=== PATIENT | male | born 1955 | race American Indian/Alaskan Native ===

== ENCOUNTER 2016-09-11 21:59 | Emergency (ER) | payer MEDICAID ==
[2016-09-11 23:16] LABS: Hematocrit 36.8 % (35.5-45.6); Hemoglobin 11.4 gm/dl (11.8-15.2); Mean Corpuscular HGB Conc 31 % (32-34); Mean Corpuscular Volume 80 fl (84-94); Platelet Count 238 K/mm3 (140-440)
[2016-09-11 23:19] LABS: Alanine Aminotransferase 18 units/L (7-56); Albumin 4.4 g/dL (3.9-5); Albumin/Globulin Ratio 1.5 %; Alkaline Phosphatase 105 units/L (35-129); BUN/Creatinine Ratio 14.44; Bilirubin,Total < 0.2 mg/dL (0.1-1.2); Blood Urea Nitrogen 13 mg/dL (9-20); Carbon Dioxide 23 mmol/L (22-30); Glucose 91 mg/dL (75-100); Total Protein 7.3 g/dL (6.3-8.2)
[2016-09-11 23:20] LABS: Chloride 98.6 mmol/L (98-107); Potassium 4.3 mmol/L (3.6-5.0); Sodium 136 mmol/L (137-145)
[2016-09-11 23:21] LABS: Anion Gap 19 mmol/L
[2016-09-11 23:25] LABS: Mean Corpuscular Hemoglobin 25 pg (28-32)
[2016-09-12 00:17] LABS: Blastocytes % (Manual) 0 %; Hypochromasia 1+
[2016-09-12 00:18] LABS: Diff Status Complete; Large Platelets 1+; Macrocytosis 1+; Microcytosis 1+; Ovalocytes Few; Platelet Estimate Consistent w Auto; Tear Drop Cells Rare
[2016-09-12 00:57] LABS: Mucus,Urine FEW /HPF; WBC,Urine < 1.0 /HPF (0.0-6.0)
[2016-09-12 01:26] LABS: Bilirubin,Urine Negative (Negative); Blood,Urine Negative (Negative); Ketones,Urine Negative (Negative)
[2016-09-12 01:27] LABS: Leukocyte Esterase,Urine Negative (Negative); Nitrite,Urine Negative (Negative); Protein,Urine <15 mg/dL mg/dL (Negative); Urobilinogen,Urine 0.2 mg/dL (<2.0)
--- NOTE | 2016-09-12 07:46 | Emergency Department Report ---
ED General Adult [facility] - General Chief complaint: Extremity Injury, Lower Stated complaint: FOOT NUMBNESS Time Seen by Provider: 09/12/16 07:44 Source: patient Mode of arrival: Ambulatory Limitations: No Limitations - History of Present Illness Initial comments: Remarkably this patient is coming to the emergency department for care of apparently chronic problems. Even remarkable is the fact that he had an appointment to see his neurosurgeon for follow-up today at 2 PM. He is status post evacuation of a subdural hematoma (partial). He was treated at the [facility]. He has unknown pre-existing left foot drop. He presents to the emergency department today to see if we can fix his left foot drop which he has clearly had for years. I verified with the neurosurgeon that this is a chronic finding. The patient admits that he has had a swollen foot with weakness and numbness for years. He is status post the SDH evacuation about 5 weeks ago. At that point it was greater than 2 cm and was causing midline shift. Patient was discharged from [facility] and improved condition after his vivienne hole. The patient denies any history of DVT. He denies fever or chills. Oddly, he is hoping that we can take care of all of his foot problem in the emergency Department today. -: year(s) Quality: other Consistency: constant Improves with: none Worsens with: none Associated Symptoms: denies other symptoms Treatments Prior to Arrival: none - Related Data Home Medications Medication Instructions Recorded Confirmed Last Taken PHENobarbital 32.4 mg PO BID 06/08/13 12/22/15 12/22/15 amLODIPine [Norvasc] 5 mg PO DAILY 06/08/13 12/22/15 12/03/13 09:00 Ranitidine HCl [Zantac] 150 mg PO QDAY 12/03/13 12/22/15 Unknown Ascorbic Acid [Vitamin C with Nikole 0.5 tab PO TID 01/31/15 12/22/15 Unknown Hips] Ferrous Sulfate [Feosol 325 MG tab] 325 mg PO TID 04/18/15 12/22/15 Unknown Previous Rx's Medication Instructions Recorded Last Taken Type Clindamycin [Clindamycin CAP] 300 mg PO Q8H #20 cap 03/21/16 Unknown Rx Allergies Allergy/AdvReac Type Severity Reaction Status Date / Time No Known Allergies Allergy Verified 06/29/13 09:59 ED Review of Systems ROS: Stated complaint: FOOT NUMBNESS Other details as noted in HPI Constitutional: denies: chills, fever Eyes: denies: eye pain, eye discharge, vision change ENT: denies: ear pain, throat pain Respiratory: denies: cough, shortness of breath, wheezing Cardiovascular: denies: chest pain, palpitations Endocrine: no symptoms reported Gastrointestinal: denies: abdominal pain, nausea, diarrhea Genitourinary: denies: urgency, dysuria Musculoskeletal: denies: back pain, joint swelling, arthralgia Skin: denies: rash, lesions Neurological: denies: headache, weakness, paresthesias Psychiatric: denies: anxiety, depression Hematological/Lymphatic: denies: easy bleeding, easy bruising ED Past Medical Hx - Past Medical History Previous Medical History?: Yes Hx Hypertension: Yes Hx CVA: Yes Hx GERD: Yes Hx Arthritis: Yes Hx Seizures: Yes Hx COPD: Yes - Surgical History Past Surgical History?: Yes Additional Surgical History: PROSTATE SURGERY / BRAIN SURGERY - Social History Smoking Status: Current Every Day Smoker Substance Use Type: Non Opiate Pain, Prescribed - Medications Home Medications: Home Medications Medication Instructions Recorded Confirmed Last Taken Type PHENobarbital 32.4 mg PO BID 06/08/13 12/22/15 12/22/15 History amLODIPine [Norvasc] 5 mg PO DAILY 06/08/13 12/22/15 12/03/13 09:00 History Ranitidine HCl [Zantac] 150 mg PO QDAY 12/03/13 12/22/15 Unknown History Ascorbic Acid [Vitamin C with Nikole 0.5 tab PO TID 01/31/15 12/22/15 Unknown History Hips] Ferrous Sulfate [Feosol 325 MG tab] 325 mg PO TID 04/18/15 12/22/15 Unknown History Clindamycin [Clindamycin CAP] 300 mg PO Q8H #20 cap 03/21/16 Unknown Rx ED Physical Exam - General Limitations: No Limitations General appearance: alert, in no apparent distress - Head Head exam: Present: atraumatic, normocephalic - Eye Eye exam: Present: normal appearance, PERRL, EOMI. Absent: scleral icterus - ENT ENT exam: Present: mucous membranes moist - Neck Neck exam: Present: normal inspection - Respiratory Respiratory exam: Present: normal lung sounds bilaterally. Absent: respiratory distress - Cardiovascular Cardiovascular Exam: Present: regular rate, normal rhythm. Absent: systolic murmur, diastolic murmur, rubs, gallop - GI/Abdominal GI/Abdominal exam: Present: soft, normal bowel sounds. Absent: distended, tenderness, guarding, rebound, rigid - Rectal Rectal exam: Present: deferred - Extremities Exam Extremities exam: Present: pedal edema (mild left pedal edema 1+) - Back Exam Back exam: Present: normal inspection - Neurological Exam Neurological exam: Present: alert, oriented X3, CN II-XII intact, motor sensory deficit (the patient does not dorsi flex his left foot. He has pulses present. He has sensation present. He has a chronic foot drop which is nearly complete.) - Psychiatric Psychiatric exam: Present: normal affect, normal mood - Skin Skin exam: Present: warm, dry, intact, normal color. Absent: rash ED Course Vital Signs 09/11/16 09/12/16 09/12/16 22:09 02:26 06:42 Temperature 98.4 F 98.4 F Pulse Rate 94 H 84 Respiratory 20 20 18 Rate Blood Pressure 152/89 137/82 [Right] O2 Sat by Pulse 100 99 99 Oximetry 09/12/16 09/12/16 09/12/16 06:54 07:40 10:45 Temperature Pulse Rate 74 80 85 Respiratory 18 18 18 Rate Blood Pressure 134/73 136/94 149/87 [Right] O2 Sat by Pulse 99 99 99 Oximetry 09/12/16 13:00 Temperature Pulse Rate 99 H Respiratory 18 Rate Blood Pressure 146/74 [Right] O2 Sat by Pulse 99 Oximetry - Reevaluation(s) Reevaluation #1: The patient's CT showed no midline shift. There was a chronic subdural measuring 11 mm at its maximum girth on the right. I read the entire CT report to the patient's neurosurgeon is mid-level provider. She compared it to his discharge CT. It actually compared favorably. She told me the patient has a chronic foot drop and that his examination is unchanged. I told the patient that he should certainly keep his appointment with neurosurgery which she was noncompliant with today. I think he is a candidate for a foot brace. However I don't think an orthopedist is going to work with him until he is cleared by his neurosurgeon. I will leave that up to his neurosurgeon. He will be given a CD of his CT scan to bring to his neurosurgeon 's office. They will call him with a new appointment. 09/12/16 14:54 Reevaluation #2: On reexamination the patient was found resting comfortably. He has no evidence of any acute neurological process. His Doppler of his leg was negative. His foot drop is chronic. He is appropriate for discharge. 09/12/16 14:57 ED Medical Decision Making - Lab Data Result diagrams: 09/11/16 22:43 09/11/16 22:43 Laboratory Results - last 24 hr 09/11/16 09/11/16 09/12/16 22:43 22:43 Unknown WBC 5.0 RBC 4.60 Hgb 11.4 L Hct 36.8 MCV 80 L MCH 25 L MCHC 31 L RDW 33.0 H Plt Count 238 Add Manual Diff Complete Total Counted 100 Seg Neuts % (Manual) 58.0 Band Neutrophils % 0 Lymphocytes % (Manual) 28.0 Reactive Lymphs % (Man) 0 Monocytes % (Manual) 7.0 Eosinophils % (Manual) 6.0 H Basophils % (Manual) 1.0 Metamyelocytes % 0 Myelocytes % 0 Promyelocytes % 0 Blast Cells % 0 Nucleated RBC % Not Reportable Seg Neutrophils # Man 2.9 Band Neutrophils # 0.0 Lymphocytes # (Manual) 1.4 Abs React Lymphs (Man) 0.0 Monocytes # (Manual) 0.4 Eosinophils # (Manual) 0.3 Basophils # (Manual) 0.1 Metamyelocytes # 0.0 Myelocytes # 0.0 Promyelocytes # 0.0 Blast Cells # 0.0 WBC Morphology Not Reportable Hypersegmented Neuts Not Reportable Hyposegmented Neuts Not Reportable Hypogranular Neuts Not Reportable Smudge Cells Not Reportable Toxic Granulation Not Reportable Toxic Vacuolation Not Reportable Dohle Bodies Not Reportable Pelger-Huet Anomaly Not Reportable Gael Rods Not Reportable Platelet Estimate Consistent w auto Clumped Platelets Not Reportable Plt Clumps, EDTA Not Reportable Large Platelets 1+ Giant Platelets Not Reportable Platelet Satelliting Not Reportable Plt Morphology Comment Not Reportable RBC Morphology Not Reportable Dimorphic RBCs Not Reportable Polychromasia Not Reportable Hypochromasia 1+ Poikilocytosis Not Reportable Anisocytosis Not Reportable Microcytosis 1+ Macrocytosis 1+ Spherocytes Not Reportable Pappenheimer Bodies Not Reportable Sickle Cells Not Reportable Target Cells Not Reportable Tear Drop Cells Rare Ovalocytes Few Helmet Cells Not Reportable Jaeger-Kingston Bodies Not Reportable Thrall Rings Not Reportable Vivienne Cells Not Reportable Bite Cells Not Reportable Crenated Cell Not Reportable Elliptocytes Not Reportable Acanthocytes (Spur) Not Reportable Rouleaux Not Reportable Hemoglobin C Crystals Not Reportable Schistocytes Not Reportable Malaria parasites Not Reportable Fam Bodies Not Reportable Hem Pathologist Commnt No Sodium 136 L Potassium 4.3 Chloride 98.6 Carbon Dioxide 23 Anion Gap 19 BUN 13 Creatinine 0.9 Estimated GFR > 60 BUN/Creatinine Ratio 14.44 Glucose 91 Calcium 9.0 Total Bilirubin < 0.2 AST 21 ALT 18 Alkaline Phosphatase 105 Total Protein 7.3 Albumin 4.4 Albumin/Globulin Ratio 1.5 Urine Color Yellow Urine Turbidity Clear Urine pH 6.0 Ur Specific [place] 1.020 Urine Protein <15 mg/dl Urine Glucose (UA) Negative Urine Ketones Negative Urine Blood Negative Urine Nitrite Negative Ur Reducing Substances Not Reportable Urine Bilirubin Negative Urine Ictotest Not Reportable Urine Urobilinogen 0.2 Ur Leukocyte Esterase Negative Urine WBC (Auto) < 1.0 Urine RBC (Auto) 0.0 U Epithel Cells (Auto) < 1.0 Urine Mucus Few - Radiology Data Radiology results: report reviewed Critical care attestation.: If time is entered above; I have spent that time in minutes in the direct care of this critically ill patient, excluding procedure time. ED Disposition Clinical Impression: Chronic subdural hematoma, Foot drop, left Disposition: DISCHARGED TO HOME OR SELFCARE Is pt being admited?: No Does the pt Need Aspirin: No Condition: Stable Instructions: Foot Drop (ED), Subdural Hematoma (ED) Additional Instructions: Do not drink alcohol. Do not take aspirin. Must follow-up with your neurosurgeon. Perhaps when you are cleared they may refer you to physical therapy for a foot brace. However it is most essential that you follow-up with your neurosurgeon. They will call you with a new appointment. Return any acute change or problem. Referrals: PRIMARY CARE,MD [Primary Care Provider] - 3-5 Days usual, neurosurgeon [Other] - 2-3 Days Time of Disposition: 14:57
--- NOTE | 2016-09-12 09:21 | Cat Scan Report ---
Cranial CT without contrast. Findings: The posterior fossa is normal. The ventricles are normal in size and contour. There are no masses. There is an extra-axial collection on the right in the frontoparietal region most of which demonstrates CT numbers consistent with water density indicating chronicity. The maximum width of this collection measures 11 mm. There is minimal hyperdensity anteriorly some of which could be related to calcification. A very small hyperdense component cannot be excluded however. There is no shift of midline or other evidence of significant mass effect. Post craniotomy changes are seen in the right frontal bone. Impression: Mixed density right subdural hematoma most of which appears to be chronic. Minimal hyperdense fluid anteriorly suggests a small subcutaneous component. There is no significant mass effect. Postcraniotomy changes are noted.
[2016-09-12 13:19] VITALS: BP 146/74
--- NOTE | 2016-09-13 13:38 | Vascular Lab Report ---
Left Lower Extremity Venous Duplex Study: Reason for Exam: Left leg swelling. Comments on the Right: A limited duplex study was done of the proximal veins of the right lower extremity. All veins visualized are freely compressible without evidence of internal echogenicity. Flow is spontaneous and phasic throughout. No evidence of acute or chronic thrombus is seen in any of the vessels visualized. Comments on the Left: All veins visualized are freely compressible without evidence of internal echogenicity. Flow is spontaneous and phasic throughout. No evidence of acute or chronic thrombus is seen in any of the vessels visualized. Impression: No evidence of acute or chronic deep venous thrombosis in the left lower extremity.
== END 2016-09-12 15:17 | disposition home or self-care (01) ==
LOC: ED 21:59
DX: I62.03 Nontraumatic chronic subdural hemorrhage (principal); M21.372 Foot drop, left foot; I10 Essential (primary) hypertension; I63.9 Cerebral infarction, unspecified; K21.9 Gastro-esophageal reflux disease without esophagitis; M19.90 Unspecified osteoarthritis, unspecified site; R56.9 Unspecified convulsions; J44.9 Chronic obstructive pulmonary disease, unspecified; F17.200 Nicotine dependence, unspecified, uncomplicated
CPT/HCPCS: 36415; 70450; 80053; 81001; 85007; 85025

== ENCOUNTER 2019-03-23 21:38 | Emergency (ER) | payer MEDICAID ==
[2019-03-23] MEDS ORDERED: MORPHINE IV ONE (21:52)
--- NOTE | 2019-03-23 21:54 | Emergency Department Report ---
ED General Adult HPI - General Chief complaint: Abdominal Pain Stated complaint: HEMATURIA/GROIN/UMBILICAL PAIN Time Seen by Provider: 03/23/19 21:43 Source: patient, EMS (ems notes not available at time of chart dictation), RN notes reviewed, old records reviewed Mode of arrival: Stretcher Limitations: Other (patient has indwelling tracheostomy. Patient not able to speak. Patient writes down all responses to questions) - History of Present Illness Initial comments: This is a 60-year-old gentleman. His past medical history reportedly includes prostate cancer, hypertension, seizure, high cholesterol, COPD, head and neck cancer, tracheostomy Patient brought to the hospital by EMS for reported nontraumatic suprapubic pain, lower abdominal pain, and inability to urinate. The patient indicates the symptoms started today. He indicates they're constant. They reportedly did not have exacerbating or relieving factors. He indicates his pain does not radiate anywhere. The patient denies testicular pain. The patient also endorses a secondary complaint of nontraumatic bilateral lower extremity swelling. He thinks the swelling has been going on for a few days but he is not sure. He indicates no headache, neck pain, chest pain and upper abdominal pain, new, different shortness of breath. -: Gradual, hour(s), days(s) Location: abdomen, left, right, lower extremity Consistency: constant Improves with: none Worsens with: none - Related Data Home Medications Medication Instructions Recorded Confirmed Last Taken PHENobarbital 32.4 mg PO BID 06/08/13 07/10/17 12/22/15 amLODIPine [Norvasc] 5 mg PO DAILY 06/08/13 07/10/17 12/03/13 09:00 Ranitidine HCl [Zantac] 150 mg PO QDAY 12/03/13 07/10/17 Unknown Ascorbic Acid [Vitamin C with Nikole 0.5 tab PO TID 01/31/15 07/10/17 Unknown Hips] Ferrous Sulfate [Feosol 325 MG tab] 325 mg PO TID 04/18/15 07/10/17 Unknown Previous Rx's Medication Instructions Recorded Last Taken Type Acetaminophen/Codeine [Tylenol 1 tab PO Q6H PRN #12 tab 06/15/18 Unknown Rx /Codeine # 3 tab] levETIRAcetam [Keppra] 500 mg PO BID #10 tablet 06/15/18 Unknown Rx Nitrofurantoin [place]/M-Cryst 100 mg PO Q12HR #14 capsule 03/24/19 Unknown Rx [Macrobid CAP] Allergies Allergy/AdvReac Type Severity Reaction Status Date / Time No Known Allergies Allergy Verified 06/29/13 09:59 ED Review of Systems ROS: Stated complaint: HEMATURIA/GROIN/UMBILICAL PAIN Other details as noted in HPI Constitutional: denies: fever Eyes: denies: eye discharge ENT: denies: epistaxis Respiratory: denies: cough Cardiovascular: edema Gastrointestinal: abdominal pain Genitourinary: denies: testicular pain, testicular mass Musculoskeletal: denies: back pain Skin: denies: lesions Psychiatric: anxiety ED Past Medical Hx - Past Medical History Hx Hypertension: Yes Hx CVA: Yes Hx Congestive Heart Failure: No Hx Diabetes: No Hx GERD: Yes Hx Arthritis: Yes Hx Seizures: Yes Hx Asthma: No Hx COPD: Yes Hx HIV: No Additional medical history: anemia - Surgical History Additional Surgical History: PROSTATE SURGERY / BRAIN SURGERY, THROAT CA - Social History Smoking Status: Current Every Day Smoker Substance Use Type: Alcohol - Medications Home Medications: Home Medications Medication Instructions Recorded Confirmed Last Taken Type PHENobarbital 32.4 mg PO BID 06/08/13 07/10/17 12/22/15 History amLODIPine [Norvasc] 5 mg PO DAILY 06/08/13 07/10/17 12/03/13 09:00 History Ranitidine HCl [Zantac] 150 mg PO QDAY 12/03/13 07/10/17 Unknown History Ascorbic Acid [Vitamin C with Nikole 0.5 tab PO TID 01/31/15 07/10/17 Unknown History Hips] Ferrous Sulfate [Feosol 325 MG tab] 325 mg PO TID 04/18/15 07/10/17 Unknown History Acetaminophen/Codeine [Tylenol 1 tab PO Q6H PRN #12 tab 06/15/18 Unknown Rx /Codeine # 3 tab] levETIRAcetam [Keppra] 500 mg PO BID #10 tablet 06/15/18 Unknown Rx Nitrofurantoin [place]/M-Cryst 100 mg PO Q12HR #14 capsule 03/24/19 Unknown Rx [Macrobid CAP] ED Physical Exam - General Limitations: Other (the patient is not able to speak. The patient has a tracheostomy in the neck.) General appearance: alert, anxious, in distress - Head Head exam: Present: atraumatic, normocephalic - Eye Eye exam: Present: normal appearance - ENT ENT exam: Present: normal exam, mucous membranes moist, normal external ear exam, other (there is a tracheostomy on the neck, stoma is clean, no redness, pus or streaking) - Neck Neck exam: Present: normal inspection, full ROM. Absent: tenderness, meningismus - Respiratory Respiratory exam: Present: normal lung sounds bilaterally. Absent: respiratory distress, wheezes, rales, rhonchi, stridor, decreased breath sounds - Cardiovascular Cardiovascular Exam: Present: normal rhythm, tachycardia, normal heart sounds. Absent: systolic murmur, diastolic murmur, rubs, gallop - GI/Abdominal GI/Abdominal exam: Present: soft, tenderness, other (there is suprapubic tenderness.). Absent: distended, guarding, rebound, rigid, pulsatile mass - Rectal Rectal exam: Present: deferred - exam: Present: normal inspection, other (there is no testicular tenderness. There is normal testicular lie bilaterally. There is normal cremasteric reflex bilaterally.). 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 Compartments soft. No long bony tenderness. The pelvis is stable.). Absent: calf tenderness - Back Exam Back exam: Present: normal inspection, full ROM. Absent: tenderness, CVA tenderness (R), CVA tenderness (L), paraspinal tenderness, vertebral tenderness - Neurological Exam Neurological exam: Present: alert, other (5 out of 5 strength in 4 extremities. There is no obvious facial droop. The tongue is midline. The extraocular movements are intact bilaterally. Sensation is intact to light touch in the b ilateral upper, lower extremities.). Absent: motor sensory deficit - Psychiatric Psychiatric exam: Present: anxious - Skin Skin exam: Present: warm, dry, intact, normal color. Absent: rash ED Course Vital Signs 03/23/19 03/23/19 03/23/19 21:45 22:00 22:14 Temperature 98.9 F Pulse Rate 127 H Respiratory 13 33 H 26 H Rate Blood Pressure 191/110 O2 Sat by Pulse 98 98 Oximetry 03/23/19 03/23/19 03/23/19 22:16 22:30 22:45 Temperature Pulse Rate 111 H 109 H 106 H Respiratory 14 13 15 Rate Blood Pressure 145/81 145/81 191/110 O2 Sat by Pulse 97 97 Oximetry 03/23/19 03/23/19 03/23/19 23:24 23:30 23:46 Temperature Pulse Rate 111 H 104 H 108 H Respiratory 11 L 17 Rate Blood Pressure O2 Sat by Pulse 87 99 98 Oximetry 03/24/19 00:00 Temperature Pulse Rate 106 H Respiratory 12 Rate Blood Pressure O2 Sat by Pulse 97 Oximetry - Reevaluation(s) Reevaluation #1: 03/23/19 22:10 Differential diagnosis, including but not limited to: Urinary retention, urinary tract infection, BPH, urinary malignancy, dependent edema, DVT, renal insufficiency, hepatic insufficiency, venous insufficiency Assessment and plan: 63-year-old gentleman with 2 complaints Complaint #1, suprapubic pain with urinary retention. We will treat the patient's pain, as this is the most likely explanation for his tachycardia. Nursing team to place Carrasco catheter, to leg bag. In addition, we will request patient's medications be reconciled. CBC, CMP, urinalysis, urine culture ordered. Complaint #2, nontraumatic bilateral lower extremity swelling: Appears to be chronic dependent edema. Not hypoxic, no crackles or rales, appears to be pitting edema. Check screening laboratory studies. Reassess at the data points. Patient may benefit from low-dose diuretic, or compression stockings. Reevaluation #2: 03/24/19 00:12 Patient produced [address] scan of the abdomen and pelvis negative for acute disease. Specifically, the bladder does not appear to be distended on CT scan. X-ray of the chest unremarkable. Heart rate now 104 bpm. Patient appears improved. Indicates that he feels more comfortable at this time. Patient can follow up with an outpatient urology specialist and primary care doctor. Urinalysis reviewed and appreciated. We will cover empirically with Macrobid. Reevaluation #3: 03/24/19 00:15 Elevated blood pressure reviewed and appreciated, appears to be chronic, and not acutely symptomatic. Likely secondary to pain and possibly anxiety. He can follow up with his outpatient primary care doctor for his hypertension, elevated blood pressure. Please reference the [employer] clinical policy on hypertension which is not acutely decompensated or acutely symptomatic. ED Medical Decision Making - Lab Data Result diagrams: 03/23/19 21:56 03/23/19 21:56 Vital Signs 03/23/19 03/23/19 03/23/19 21:45 22:00 22:14 Temperature 98.9 F Pulse Rate 127 H Respiratory 13 33 H 26 H Rate Blood Pressure 191/110 O2 Sat by Pulse 98 98 Oximetry 03/23/19 22:16 Temperature Pulse Rate Respiratory 26 H Rate Blood Pressure O2 Sat by Pulse Oximetry Lab Results 03/23/19 03/23/19 03/23/19 Range/Units 21:56 21:56 21:56 WBC 5.9 (4.5-11.0) K/mm3 RBC 4.17 (3.65-5.03) M/mm3 Hgb 12.7 (11.8-15.2) gm/dl Hct 38.4 (35.5-45.6) % MCV 92 (84-94) fl MCH 31 (28-32) pg MCHC 33 (32-34) % RDW 17.8 H (13.2-15.2) % Plt Count 235 (140-440) K/mm3 PT 12.3 (12.2-14.9) Sec. INR 0.94 (0.87-1.13) Sodium 130 L (137-145) mmol/L Potassium 4.8 (3.6-5.0) mmol/L Chloride 94.1 L (98-107) mmol/L Carbon Dioxide 22 (22-30) mmol/L Anion Gap 19 mmol/L BUN 13 (9-20) mg/dL Creatinine 0.7 L (0.8-1.5) mg/dL Estimated GFR > 60 ml/min BUN/Creatinine Ratio 19 % Glucose 113 H (75-100) mg/dL Calcium 10.1 (8.4-10.2) mg/dL Total Bilirubin 0.20 (0.1-1.2) mg/dL AST 32 (5-40) units/L ALT 21 (7-56) units/L Alkaline Phosphatase 95 (35-129) units/L Total Protein 8.1 (6.3-8.2) g/dL Albumin 4.0 (3.9-5) g/dL Albumin/Globulin Ratio 1.0 % Urine Color (Yellow) Urine Turbidity (Clear) Urine pH (5.0-7.0) Ur Specific [place] (1.003-1.030) Urine Protein (Negative) mg/dL Urine Glucose (UA) (Negative) mg/dL Urine Ketones (Negative) mg/dL Urine Blood (Negative) Urine Nitrite (Negative) Urine Bilirubin (Negative) Urine Urobilinogen (<2.0) mg/dL Ur Leukocyte Esterase (Negative) Urine WBC (Auto) (0.0-6.0) /HPF Urine RBC (Auto) (0.0-6.0) /HPF 03/23/19 Range/Units 22:09 WBC (4.5-11.0) K/mm3 RBC (3.65-5.03) M/mm3 Hgb (11.8-15.2) gm/dl Hct (35.5-45.6) % MCV (84-94) fl MCH (28-32) pg MCHC (32-34) % RDW (13.2-15.2) % Plt Count (140-440) K/mm3 PT (12.2-14.9) Sec. INR (0.87-1.13) Sodium (137-145) mmol/L Potassium (3.6-5.0) mmol/L Chloride (98-107) mmol/L Carbon Dioxide (22-30) mmol/L Anion Gap mmol/L BUN (9-20) mg/dL Creatinine (0.8-1.5) mg/dL Estimated GFR ml/min BUN/Creatinine Ratio % Glucose (75-100) mg/dL Calcium (8.4-10.2) mg/dL Total Bilirubin (0.1-1.2) mg/dL AST (5-40) units/L ALT (7-56) units/L Alkaline Phosphatase (35-129) units/L Total Protein (6.3-8.2) g/dL Albumin (3.9-5) g/dL Albumin/Globulin Ratio % Urine Color Red (Yellow) Urine Turbidity Slightly-cloudy (Clear) Urine pH 6.0 (5.0-7.0) Ur Specific [place] 1.011 (1.003-1.030) Urine Protein 30 mg/dl (Negative) mg/dL Urine Glucose (UA) Neg (Negative) mg/dL Urine Ketones Neg (Negative) mg/dL Urine Blood Lg (Negative) Urine Nitrite Neg (Negative) Urine Bilirubin Neg (Negative) Urine Urobilinogen < 2.0 (<2.0) mg/dL Ur Leukocyte Esterase Tr (Negative) Urine WBC (Auto) > 182.0 H (0.0-6.0) /HPF Urine RBC (Auto) > 182.0 (0.0-6.0) /HPF - EKG Data -: EKG Interpreted by Me Rate: tachycardia - EKG Data 03/23/19 22:12 This is a sinus tachycardia, 132 beats per minute, normal axis, QTC 445 ms, left ventricular hypertrophy, there is no endorsement of chest pain, the EKG is abnormal, the EKG is not consistent with ST elevation myocardial infarction. The sinus tachycardia, the EKG is unchanged from prior EKG from May 2018. - Radiology Data Radiology results: pending, report reviewed, image reviewed interpreted by me: X-ray the chest negative for acute disease Print Report Referring Physician: MONIQUE CAMPOVERDE Patient Name: MICHELLE AWAN Date of : 1955 Sex: Male Report Date: 2019-03-23 Report Status: [place] [address] Cat Scan Report Signed Patient: MICHELLE AWAN MR#: [id number] : 1955 Acct:[id number] Age/Sex: 63 / M ADM Date: 03/23/19 Loc: ED Attending Dr: Ordering Physician: MONIQUE CAMPOVERDE MD Date of Service: 03/23/19 Procedure(s): CT abdomen pelvis wo con Accession Number(s): [id number] cc: MONIQUE CAMPOVERDE MD CT of the abdomen and pelvis without contrast INDICATION: Abdominal pain and urinary retention COMPARISON: None FINDINGS: Elevated left hemidiaphragm is seen with left basilar atelectasis. The liver, spleen, pancreas, adrenal glands and kidneys show no significant abnormalities. No definite gallbladder or biliary tree abnormality. No fluid or adenopathy in the upper abdomen. There is vascular calcification without aneurysm. CT of the pelvis shows no ureteral stones. No stone fragments seen in the bladder. Prostate is not enlarged with brachytherapy seeds in place. There is no bladder distention. No pelvic or inguinal adenopathy. No diverticulitis. Appendix is seen and is normal. IMPRESSION: Negative study. Automated exposure control was utilized to diminish radiation dose. Signer Name: Skip Rocha MD Signed: 03/23/2019 11:34 PM Workstation Name: [id number] Transcribed By: WILLIAM Dictated By: Skip Rocha MD Electronically Authenticated By: Skip Rocha MD Signed Date/Time: 03/23/19 9152 Critical care attestation.: If time is entered above; I have spent that time in minutes in the direct care of this critically ill patient, excluding procedure time. ED Disposition Clinical Impression: Lower extremity edema, Hematuria, Urinary hesitancy, Elevated blood pressure reading Disposition: - TO HOME OR SELFCARE Is pt being admited?: No Does the pt Need Aspirin: No Condition: Stable Additional Instructions: please call [phone], listen for the prompts and select option 1 to speak to our staff, Available Friday through Friday, 7 am to 5 pm PM to assist you. Continue current outpatient medications. Take the antibiotics as directed. Cultures were sent today, and results will be available in the next 3-5 days. Have a primary care doctor or urology specialist contact medical records department to obtain culture results. Follow-up with a urologist within the next 7-10 days. Not following up is recommended May resultant undiagnosed bladder, genitourinary cancer, tumor, malignancy. Follow-up with your primary care doctor within the next 7-10 days for elevated blood pressure, and lower extremity swelling. Patient was noted to have high blood pressure in the ER. Long-term complications of hypertension and elevated blood pressure include stroke, heart attack, disability, paralysis, loss of quality of life. Dr. Saldana is a local urology specialist. Make certain to bring the ultrasound requisition form with you. Please return to the ER right away with chest pain, shortness of breath, passing out, lightheadedness, shortness of breath, new, worsening or different symptoms. Referrals: ZOE SALDANA MD [Staff Physician] - 3-5 Days [facility] [Provider Group] - 3-5 Days
[2019-03-23 22:28] LABS: Hematocrit 38.4 % (35.5-45.6); Hemoglobin 12.7 gm/dl (11.8-15.2); Red Blood Count 4.17 M/mm3 (3.65-5.03)
[2019-03-23 22:29] LABS: Mean Corpuscular HGB Conc 33 % (32-34); Mean Corpuscular Volume 92 fl (84-94); Platelet Count 235 K/mm3 (140-440); Red Cell Distribution Width 17.8 % (13.2-15.2)
[2019-03-23 22:32] LABS: INR 0.94 (0.87-1.13)
[2019-03-23 22:38] LABS: BUN/Creatinine Ratio 19; Blood Urea Nitrogen 13 mg/dL (9-20); Calcium 10.1 mg/dL (8.4-10.2); Hemolysis Index 151
[2019-03-23 22:41] LABS: Alanine Aminotransferase 21 units/L (7-56)
[2019-03-23 22:56] LABS: Bilirubin,Urine NEG (Negative); Blood,Urine LG (Negative); Color,Urine Red (Yellow); Urobilinogen,Urine < 2.0 mg/dL (<2.0)
[2019-03-23 22:58] LABS: RBC,Urine > 182.0 /HPF (0.0-6.0); WBC,Urine > 182.0 /HPF (0.0-6.0)
--- NOTE | 2019-03-23 23:38 | Cat Scan Report ---
CT of the abdomen and pelvis without contrast INDICATION: Abdominal pain and urinary retention COMPARISON: None FINDINGS: Elevated left hemidiaphragm is seen with left basilar atelectasis. The liver, spleen, pancr eas, adrenal glands and kidneys show no significant abnormalities. No definite gallbladder or biliary tree abnormality. No fluid or adenopathy in the upper abdomen. There is vascular calcification witho ut aneurysm. CT of the pelvis shows no ureteral stones. No stone fragments seen in the bladder. Prostate is not en larged with brachytherapy seeds in place. There is no bladder distention. No pelvic or inguinal adeno ezio. No diverticulitis. Appendix is seen and is normal. IMPRESSION: Negative study. Automated exposure control was utilized to diminish radiation dose. Signer Name: Skip Rocha MD Signed: 03/23/2019 11:34 PM Workstation Name: [id number]
[2019-03-23] MEDS ORDERED: NACL 0.9% 1000 ML 500 ML IV ONE (23:47)
--- NOTE | 2019-03-24 00:05 | XRay Report ---
CHEST 1 VIEW INDICATION / CLINICAL INFORMATION: edema. COMPARISON: 07/09/2017 FINDINGS: SUPPORT DEVICES: Tracheostomy tube is in place. HEART / MEDIASTINUM: Moderately enlarged LUNGS / PLEURA: Clear except for minimal basilar atelectasis. No pneumothorax. ADDITIONAL FINDINGS: Multiple surgical clips are seen over the lower neck. IMPRESSION: 1 No acute abnormality Signer Name: Skip Rocha MD Signed: 03/24/2019 12:01 AM Workstation Name: [id number]
[2019-03-24] MEDS ORDERED: MAGNESIUM SULFATE 2GM/50ML 2 GM/50 ML BAG IV ONE (00:17)
[2019-03-24 00:20] VITALS: BP 144/82
== END 2019-03-24 10:16 | disposition home or self-care (01) ==
LOC: ED 21:38
DX: R60.0 Localized edema (principal); R31.9 Hematuria, unspecified; R39.11 Hesitancy of micturition; I10 Essential (primary) hypertension; K21.9 Gastro-esophageal reflux disease without esophagitis; M19.90 Unspecified osteoarthritis, unspecified site; J44.9 Chronic obstructive pulmonary disease, unspecified; D64.9 Anemia, unspecified; F17.200 Nicotine dependence, unspecified, uncomplicated; Z98.890 Other specified postprocedural states; Z95.818 Presence of other cardiac implants and grafts; Z86.73 Personal history of transient ischemic attack (TIA), and cerebral infarction without residual deficits; Z79.899 Other long term (current) drug therapy
CPT/HCPCS: 36415; 51702; 71045; 74176; 80053; 81001; 82550; 83735; 85027; 85610; 87086; 93005; 93010; 94760; 96365; 96375; 99285; J2270; J3475; J7030

== ENCOUNTER 2019-07-05 07:10 | Day surgery (SDC) | payer MEDICAID ==
[~2019-07-05 07:10] MED LIST: IOHEXOL 300 MG/ML 50ML IV ONE
[2019-07-05] MEDS ORDERED: ONDANSETRON 4 MG/2 ML INJ IV PRN (07:32)
--- NOTE | 2019-07-05 07:33 | Anesthesia Day of Surgery ---
Anesthesia Day of Surgery - Day of Surgery Patient Examined: Yes Patient H&P Reviewed: Yes Patient is NPO: Yes
--- NOTE | 2019-07-05 07:37 | Anesthesia Consultation ---
Anesthesia Consult and Med Hx Date of service: 07/05/19 - Pre-Operative Health Status ASA Pre-Surgery Classification: ASA3 Proposed Anesthetic Plan: General - Pulmonary Hx Smoking: Yes (STOPPED 2018 (SMOKED 1 PPD X OVER 50 YRS)) Hx Asthma: No SOB: Yes (SOB) COPD: Yes (DAILY INHALERS) Hx Pneumonia: Yes Hx Sleep Apnea: No (CIRA PRE SCREEN HIGH RISK.) - Cardiovascular System Hx Hypertension: Yes (X 25 YRS) - Central Nervous System Hx Neuromuscular Disorder: Yes (Chronic subdural hematoma) Hx Seizures: Yes (20 YRS AGO- ON DAILY MEDS) CVA: Yes (Aphasic and writes down answers) Hx Back Pain: Yes Hx Psychiatric Problems: No - Gastrointestinal Hx Gastroesophageal Reflux Disease: Yes - Endocrine Hx End Stage Renal Disease: No Hx Thyroid Disease: Yes Hx Hypothyroidism: Yes (ON DAILY MEDS) - Hematic Hx Anemia: Yes - Other Systems Hx Alcohol Use: Yes (HX ALCOHOLIC) Hx Cancer: Yes (NECK CA , [place]= RADICAL NECK) - Additional Comments Anesthesia Medical History Comments: PT HAS TRACH IN PLACE
[2019-07-05] MEDS ORDERED: PROPOFOL 200 MG/20 ML VIAL IV ONE (07:51)
[2019-07-05] MEDS ORDERED: fentaNYL 100 MCG/2 ML INJ ONE (07:52)
[2019-07-05] MEDS ORDERED: LIDOCAINE MPF (2%) 20 MG/1 ML VIAL 5 ML ONE (07:52)
[2019-07-05] MEDS ORDERED: LACTATED RINGERS 1,000 ML IV SCH (08:00)
[2019-07-05] MEDS ORDERED: ceFAZolin/STERILE WATER 2 GM/20 ML SYRINGE IV NR (08:05)
[2019-07-05] MEDS ORDERED: IOHEXOL 300 MG/ML 50ML IV ONE (09:00)
--- NOTE | 2019-07-05 09:30 | Fluoroscopy Report ---
9 fluoroscopic images submitted Indication: Intraoperative localization Impression: 9 images of the abdomen were submitted for documentation purposes with radiology involve ment. Bilateral retrograde pyelogram were performed using approximately 10 mL of Omnipaque 300. Plea se refer to the operative note for complete details. Fluoroscopic time: 15 seconds Signer Name: Nash Staton MD Signed: 07/05/2019 9:26 AM Workstation Name: [id number]
--- NOTE | 2019-07-05 09:34 | Post Operative Note ---
Date of procedure: 07/05/19 Pre-op diagnosis: cap stricture Post-op diagnosis: same Findings: stricture Procedure: severe stricture Anesthesia: GETA Surgeon: LISBETH REDMOND Estimated blood loss: minimal Pathology: none Condition: stable Disposition: PACU
--- NOTE | 2019-07-05 09:35 | Discharge Summary ---
Short Stay Discharge Plan Activity: other (no strainig ) Weight Bearing Status: Full Weight Bearing Diet: low fat, low cholesterol, low salt Special Instructions: other (inc fluids ) Durable Medical Equipment Needed Upon Discharge: other (schuster ) Follow up with: MARLENE GARIBAY MD [Primary Care Provider] - 7 Days
--- NOTE | 2019-07-05 09:48 | Operative Report ---
PREOPERATIVE DIAGNOSES: Severe urethral stricture, previous radiation. POSTOPERATIVE DIAGNOSES: Severe urethral stricture, previous radiation. PROCEDURES: Cystoscopy, retrograde direct vision internal urethrotomy. SURGEON: Dr. Hull. ANESTHESIA: General. FINDINGS: This is a gentleman with some mild hydronephrosis, difficulty voiding, now presents for treatment. He had a bad stricture. DESCRIPTION OF PROCEDURE: The patient was brought to the operating room and placed on the operating table. Following induction of anesthesia, placed in lithotomy position, prepped and draped in usual sterile fashion. Cystourethroscopy showed a stricture at the bulbomembranous junction. This measured approximately 1.5 cm. It was quite tight. A wire coiled in the bladder under fluoroscopic guidance and direct vision internal urethrotomy was carried out. The patient tolerated the procedure well and was wide open. Bladder neck was wide open, previously resected. At this point, retrograde showed some mild hydroureteronephrosis down to the bladder with some J hooking. There was no persistent filling defect. There was a little tortuosity in both ureters. The patient tolerated the procedure well. A Councill catheter 22 was easily placed over the wire once we opened up the channel, brought to recovery room in stable condition. JOB# [id number] SHIN/ARDEN
[2019-07-05] MEDS: fentaNYL 100 MCG/2 ML INJ IV PRN ×2 (10:00→10:10)
[2019-07-05 10:24] VITALS: BP 130/74
[2019-07-05] MEDS ORDERED: HYDROcodone/APAP 7.5-325MG-15ML ORAL LIQD PO ONE (10:29)
--- NOTE | 2019-07-05 13:37 | Post Anesthesia Evaluation ---
- Post Anesthesia Evaluation Patient Participated: Yes Airway Patent: Yes Stable Respiratory Function: Yes Nausea/Vomiting: No Temp > 96.8F: Yes Pain Manageable: Yes Adequeate Hydration: Yes Anesthesia Complications: No Block Receding Appropriately: Not Applicable Patient on Ventilator: No
== END 2019-07-05 07:11 | disposition home or self-care (01) ==
LOC: OR 07:10
PROVIDERS: ATTEND Urology
DX: N35.819 Other urethral stricture, male, unspecified site (principal); N13.30 Unspecified hydronephrosis; I10 Essential (primary) hypertension; F17.200 Nicotine dependence, unspecified, uncomplicated; J44.9 Chronic obstructive pulmonary disease, unspecified; G40.909 Epilepsy, unspecified, not intractable, without status epilepticus; E78.00 Pure hypercholesterolemia, unspecified; M19.90 Unspecified osteoarthritis, unspecified site; F41.9 Anxiety disorder, unspecified; Z79.899 Other long term (current) drug therapy; Z79.82 Long term (current) use of aspirin; Z85.89 Personal history of malignant neoplasm of other organs and systems; Z72.89 Other problems related to lifestyle; Z85.46 Personal history of malignant neoplasm of prostate; Z98.890 Other specified postprocedural states; Z86.2 Personal history of diseases of the blood and blood-forming organs and certain disorders involving the immune mechanism
CPT/HCPCS: 52276; 74420; C1769; J2704; J3010; J7120; Q9967

== ENCOUNTER 2019-07-23 18:32 | Inpatient (IN) | payer MEDICAID ==
[2019-07-23 19:39] LABS: Basophils % (Auto) 0.8 % (0.0-1.8); Eosinophils # (Auto) 0.1 K/mm3 (0.0-0.4); Eosinophils % (Auto) 3.7 % (0.0-4.3); Hematocrit 37.8 % (35.5-45.6); Hemoglobin 12.9 gm/dl (11.8-15.2); Lymphocytes # (Auto) 0.9 K/mm3 (1.2-5.4); Lymphocytes % (Auto) 25.7 % (13.4-35.0); Mean Corpuscular HGB Conc 34 % (32-34); Mean Corpuscular Volume 90 fl (84-94); Monocytes # (Auto) 0.2 K/mm3 (0.0-0.8); Monocytes % (Auto) 7.4 % (0.0-7.3); Platelet Count 211 K/mm3 (140-440); Red Blood Count 4.18 M/mm3 (3.65-5.03); Red Cell Distribution Width 14.8 % (13.2-15.2)
[2019-07-23 20:07] LABS: Alanine Aminotransferase 71 units/L (7-56); Albumin 4.1 g/dL (3.9-5); BUN/Creatinine Ratio 12; Blood Urea Nitrogen 12 mg/dL (9-20); Calcium 8.5 mg/dL (8.4-10.2); Hemolysis Index 9
[2019-07-23 20:09] LABS: Bilirubin,Direct < 0.2 mg/dL (0-0.2)
--- NOTE | 2019-07-23 20:22 | Emergency Department Report ---
ED General Adult HPI - General Chief complaint: Recheck/Abnormal Lab/Rx Stated complaint: LOW SODIUM Time Seen by Provider: 07/23/19 18:49 Source: EMS Mode of arrival: Stretcher Limitations: No Limitations - History of Present Illness Initial comments: 63-year-old male with a past medical history of laryngeal cancer status post tracheostomy, seizures, COPD, hyponatremia, and hypothyroidism presents to the hospital complains hyponatremia. Patient presents from [facility] with laboratory results from 06/24/2019 that shows sodium 131. Patient also had TSH of 50.65 and thyroxine free of 0.58. She has a note from the [facility] from July 01 call out clerk Mitul Long suggesting the hyponatremia may be related to his edema he needs to see a PCP and consider cardiac evaluation. Also stated patient should be taken synthroid 150 g daily as well as to decrease calcium carbonate (Tums). Patient has known chronic edema and states that it is increasing. Complains of bilateral leg pain. He denies shortness of breath. as per medical record previous hx of etoh abuse - Related Data Home Medications Medication Instructions Recorded Confirmed Last Taken PHENobarbitaL [PHENobarbital] 32.4 mg PO BID 06/08/13 07/23/19 07/23/19 Ferrous Sulfate [Feosol 325 MG tab] 325 mg PO TID 04/18/15 07/23/19 07/23/19 Acetaminophen [Mapap] 500 mg PO PRN PRN 06/29/19 07/23/19 Unknown Aspirin EC [Halfprin EC] 81 mg PO QDAY 06/29/19 07/23/19 Unknown Atorvastatin [Lipitor Tab] 80 mg PO QHS 06/29/19 07/23/19 07/22/19 Calcitriol [Rocaltrol] 0.25 mcg PO DAILY 06/29/19 07/23/19 07/23/19 Gabapentin [Neurontin] 300 mg PO TID 06/29/19 07/23/19 Unknown Levothyroxine Sodium [Tirosint] 150 mcg PO DAILY 06/29/19 07/23/19 07/23/19 Multivit-Min/FA/Lycopen/Lutein 1 each PO DAILY 06/29/19 07/23/19 07/23/19 [Centrum Silver Tablet] Pantoprazole [Protonix] 40 mg PO QDAY 06/29/19 07/23/19 07/23/19 Tamsulosin [Flomax] 0.4 mg PO QDAY 06/29/19 07/23/19 07/22/19 Tiotropium [place] [Spiriva] 2 puff IH DAILY 06/29/19 07/23/19 07/23/19 traMADoL [Ultram] 50 mg PO Q6HR PRN 06/29/19 07/23/19 Unknown Ascorbic Acid [Vitamin C] 500 mg PO BID 07/23/19 07/23/19 07/23/19 Baclofen 5 mg PO TID 07/23/19 07/23/19 07/23/19 Magnesium Oxide 400 400 mg PO BID 07/23/19 07/23/19 07/23/19 Thiamine HCl [Vitamin B-1] 100 mg PO BID 07/23/19 07/23/19 07/23/19 Allergies Allergy/AdvReac Type Severity Reaction Status Date / Time No Known Allergies Allergy Verified 06/29/13 09:59 ED Review of Systems ROS: Stated complaint: LOW SODIUM Other details as noted in HPI Comment: All other systems reviewed and negative ED Past Medical Hx - Past Medical History Hx Hypertension: Yes (X 25 YRS) Hx CVA: Yes Hx Congestive Heart Failure: No Hx Diabetes: No Hx GERD: Yes (DAILY MEDS) Hx of Cancer: Yes (pharyngeal cancer, prostate cancer) Hx Arthritis: Yes Hx Seizures: Yes (20 YRS AGO- ON DAILY MEDS) Hx Asthma: No Hx COPD: Yes (DAILY INHALERS) Hx HIV: No Additional medical history: anemia - Surgical History Past Surgical History?: No Additional Surgical History: PROSTATE SURGERY / BRAIN SURGERY, tracheostomy - Social History Smoking Status: Unknown if ever smoked Substance Use Type: None - Medications Home Medications: Home Medications Medication Instructions Recorded Confirmed Last Taken Type PHENobarbitaL [PHENobarbital] 32.4 mg PO BID 06/08/13 07/23/19 07/23/19 History Ferrous Sulfate [Feosol 325 MG tab] 325 mg PO TID 04/18/15 07/23/19 07/23/19 History Acetaminophen [Mapap] 500 mg PO PRN PRN 06/29/19 07/23/19 Unknown History Aspirin EC [Halfprin EC] 81 mg PO QDAY 06/29/19 07/23/19 Unknown History Atorvastatin [Lipitor Tab] 80 mg PO QHS 11/08/0507/23/19 07/22/19 History Calcitriol [Rocaltrol] 0.25 mcg PO DAILY 06/29/19 07/23/19 07/23/19 History Gabapentin [Neurontin] 300 mg PO TID 06/29/19 07/23/19 Unknown History Levothyroxine Sodium [Tirosint] 150 mcg PO DAILY 06/29/19 07/23/19 07/23/19 History Multivit-Min/FA/Lycopen/Lutein 1 each PO DAILY 06/29/19 07/23/19 07/23/19 History [Centrum Silver Tablet] Pantoprazole [Protonix] 40 mg PO QDAY 06/29/19 07/23/19 07/23/19 History Tamsulosin [Flomax] 0.4 mg PO QDAY 06/29/19 07/23/19 07/22/19 History Tiotropium [place] [Spiriva] 2 puff IH DAILY 06/29/19 07/23/19 07/23/19 History traMADoL [Ultram] 50 mg PO Q6HR PRN 06/29/19 07/23/19 Unknown History Ascorbic Acid [Vitamin C] 500 mg PO BID 07/23/19 07/23/19 07/23/19 History Baclofen 5 mg PO TID 07/23/19 07/23/19 07/23/19 History Magnesium Oxide 400 400 mg PO BID 07/23/19 07/23/19 07/23/19 History Thiamine HCl [Vitamin B-1] 100 mg PO BID 07/23/19 07/23/19 07/23/19 History ED Physical Exam - General Limitations: No Limitations - Other Other exam information: General: No acute distress Head: Atraumatic Eyes: normal appearance ENT: Moist mucous membranes, tracheostomy Neck: Normal appearance, no midline tenderness Chest: Clear to auscultation bilaterally CV: Regular rate and rhythm Abdomen: Soft, normal bowel sounds, nontender, nondistended, no rebound or guarding Back: Normal inspection Extremity: Normal inspection infection, b/l pitting lower extremity edema 2+ Neuro: Alert O x 3, no facial asymmetry, speech clear, no gross motor sensory deficit Psych: Appropriate behavior Skin: No rash ED Course Vital Signs 07/23/19 07/23/19 18:43 19:01 Pulse Rate 88 Respiratory 12 Rate Blood Pressure 154/89 O2 Sat by Pulse 98 100 Oximetry - Consultations Consultation #1: 07/23/19 20:45 case d/w [place] regarding acute worsening of chronic hyponatremia with chronic bilateral lower extremity edema. Recommends Lasix IV 20 mg the pt will be reassessed to determine further tx ED Medical Decision Making - Lab Data Result diagrams: 07/23/19 19:24 07/23/19 19:24 Lab Results 07/23/19 07/23/19 07/23/19 Range/Units 19:24 19:24 19:24 WBC 3.4 L (4.5-11.0) K/mm3 RBC 4.18 (3.65-5.03) M/mm3 Hgb 12.9 (11.8-15.2) gm/dl Hct 37.8 (35.5-45.6) % MCV 90 (84-94) fl MCH 31 (28-32) pg MCHC 34 (32-34) % RDW 14.8 (13.2-15.2) % Plt Count 211 (140-440) K/mm3 Lymph % (Auto) 25.7 (13.4-35.0) % Bell % (Auto) 7.4 H (0.0-7.3) % Eos % (Auto) 3.7 (0.0-4.3) % Baso % (Auto) 0.8 (0.0-1.8) % Lymph # 0.9 L (1.2-5.4) K/mm3 Bell # 0.2 (0.0-0.8) K/mm3 Eos # 0.1 (0.0-0.4) K/mm3 Baso # 0.0 (0.0-0.1) K/mm3 Seg Neutrophils % 62.4 (40.0-70.0) % Seg Neutrophils # 2.1 (1.8-7.7) K/mm3 Sodium 127 L (137-145) mmol/L Potassium 4.0 (3.6-5.0) mmol/L Chloride 89.0 L (98-107) mmol/L Carbon Dioxide 21 L (22-30) mmol/L Anion Gap 21 mmol/L BUN 12 (9-20) mg/dL Creatinine 1.0 (0.8-1.5) mg/dL Estimated GFR > 60 ml/min BUN/Creatinine Ratio 12 % Glucose 96 (75-100) mg/dL Osmolality Mosm/kg Calcium 8.5 (8.4-10.2) mg/dL Total Bilirubin < 0.20 (0.1-1.2) mg/dL Direct Bilirubin < 0.2 (0-0.2) mg/dL Indirect Bilirubin 0.0 mg/dL AST 73 H (5-40) units/L ALT 71 H (7-56) units/L Alkaline Phosphatase 145 H (35-129) units/L NT-Pro-B Natriuret Pep (0-900) pg/mL Total Protein 7.5 (6.3-8.2) g/dL Albumin 4.1 (3.9-5) g/dL Albumin/Globulin Ratio 1.2 % TSH > 100.000 H (0.270-4.200) mlU/mL Free T4 0.10 L (0.76-1.46) ng/dL Urine Sodium mmol/L Urine Chloride (110-250) mmolL 07/23/19 07/23/19 07/23/19 Range/Units 19:24 19:35 20:25 WBC (4.5-11.0) K/mm3 RBC (3.65-5.03) M/mm3 Hgb (11.8-15.2) gm/dl Hct (35.5-45.6) % MCV (84-94) fl MCH (28-32) pg MCHC (32-34) % RDW (13.2-15.2) % Plt Count (140-440) K/mm3 Lymph % (Auto) (13.4-35.0) % Bell % (Auto) (0.0-7.3) % Eos % (Auto) (0.0-4.3) % Baso % (Auto) (0.0-1.8) % Lymph # (1.2-5.4) K/mm3 Bell # (0.0-0.8) K/mm3 Eos # (0.0-0.4) K/mm3 Baso # (0.0-0.1) K/mm3 Seg Neutrophils % (40.0-70.0) % Seg Neutrophils # (1.8-7.7) K/mm3 Sodium (137-145) mmol/L Potassium (3.6-5.0) mmol/L Chloride (98-107) mmol/L Carbon Dioxide (22-30) mmol/L Anion Gap mmol/L BUN (9-20) mg/dL Creatinine (0.8-1.5) mg/dL Estimated GFR ml/min BUN/Creatinine Ratio % Glucose (75-100) mg/dL Osmolality 262 Mosm/kg Calcium (8.4-10.2) mg/dL Total Bilirubin (0.1-1.2) mg/dL Direct Bilirubin (0-0.2) mg/dL Indirect Bilirubin mg/dL AST (5-40) units/L ALT (7-56) units/L Alkaline Phosphatase (35-129) units/L NT-Pro-B Natriuret Pep 13.45 (0-900) pg/mL Total Protein (6.3-8.2) g/dL Albumin (3.9-5) g/dL Albumin/Globulin Ratio % TSH (0.270-4.200) mlU/mL Free T4 (0.76-1.46) ng/dL Urine Sodium 110 mmol/L Urine Chloride 106.0 L (110-250) mmolL - Medical Decision Making Patient was acute on chronic hyponatremia with lower extremity edema and uncontrolled hypothyroidism as per thyroid lab values. Case discussed with nephrology. Lasix provided. At this time patient has a normal BNP, clear breath sounds without shortness of breath, normal renal function, and no signs of low albumin/protein. At disposition serum osmolality, UA, urine lites, and urine osmolality pending. Hospitalist informed for admission. CXR ordered - Differential Diagnosis pseudohyponatremia, hypothyroidism, volume overload, hypoalbuminemia Critical Care Time: No Critical care attestation.: If time is entered above; I have spent that time in minutes in the direct care of this critically ill patient, excluding procedure time. ED Disposition Clinical Impression: Leg edema, Hyponatremia, Hypothyroidism, Tracheostomy dependent, COPD (chronic obstructive pulmonary disease) Disposition: OP ADMIT IP TO THIS HOSP Is pt being admited?: Yes Condition: Stable Time of Disposition: 20:53
[2019-07-23] MEDS ORDERED: FUROSEMIDE 20 MG/2 ML INJ IV ONE (20:34)
[2019-07-23] MEDS ORDERED: ONDANSETRON 4 MG/2 ML INJ IV PRN (20:50)
[2019-07-23 20:53] LABS: Bilirubin,Urine NEG (Negative); Blood,Urine LG (Negative); Color,Urine Straw (Yellow); Protein,Urine <15 mg/dL mg/dL (Negative); RBC,Urine > 182.0 /HPF (0.0-6.0); Urobilinogen,Urine < 2.0 mg/dL (<2.0)
--- NOTE | 2019-07-23 21:23 | XRay Report ---
CHEST 1 VIEW INDICATION: leg edema. COMPARISON: 03/23/2019 FINDINGS: Support devices: Stable satisfactory device positioning. Heart: Within normal limits. Lungs/Pleura: Stable mild elevation of the left hemidiaphragm. Otherwise clear lungs. Additional findings: None. IMPRESSION: 1. No acute findings. Signer Name: Nash Staton MD Signed: 07/23/2019 9:19 PM Workstation Name: [id number]
[2019-07-23] MEDS ORDERED: MAGNESIUM OXIDE PO SCH (22:00)
[2019-07-23] MEDS ORDERED: THIAMINE HCL 100 MG PO SCH (22:00)
[2019-07-23] MEDS ORDERED: NON-FORMULARY EACH (Atorvastatin [Lipitor] 80 MG) PO SCH (22:00)
[2019-07-23] MEDS ORDERED: NON-FORMULARY EACH (Ascorbic Acid [Vitamin C] 500 MG) PO SCH (22:00)
[2019-07-23] MEDS ORDERED: ALBUTEROL 2.5 MG/3 ML NEBU IH PRN (22:08)
--- NOTE | 2019-07-23 22:15 | History and Physical Report ---
<IFRAH MUNROE - Last Filed: 07/23/19 22:50> History of Present Illness Date of examination: 07/23/19 Date of admission: 07/23/2019 Chief complaint: abnormal labs ( hyponatremia) History of present illness: 63-year-old -[place] male who is a resident of [facility] with history of laryngeal cancer status post trach, seizure, COPD, hyponatremia, hypothyroidism, EtOH abuse, hypertension, CVA, GERD, arthritis, anemia, HLD and chronic pain who presents to [facility] ED with complaints of hyponatremia. She was b rought in from [facility] for follow-up on abnormal sodium level of 131 which was done at outpatient facility on 06/24/19. Of note pt saw Dr. Mitul Long (surgical device sales representative) on 07/01/19, who suggested that hyponatremia may be related to BLE edema, and advised pt to follow up with PCP and consider cardiac evaluation. Pt's PCP is Dr. Vinh Lennon. Of note pt was found to have TSH of 50.65 and thyroxine free of 0.58. At the time pt was on Synthroid 137mcg. Synthroid was increased to 150mcg and pt was advised to follow up on TSH labs in 6 weeks. At the time of my examination pt is sitting up in stretcher. He is able to communicate by mouthing words and writing. He complains of leg discomfort, and has no further complaints. Past History Past Medical History: anemia, arthritis, cancer (laryngeal), COPD, GERD, hypertension, hyperlipidemia, hypothyroidism, seizures, stroke, other (hyponatremia, EtOH abuse, chronic pain) Past Surgical History: Other (s/p tracheostomy, prostate surgery, brain surgery) Social history: full code, other (resident of [facility]) Family history: no significant family history Medications and Allergies Allergies Allergy/AdvReac Type Severity Reaction Status Date / Time No Known Allergies Allergy Verified 06/29/13 09:59 Home Medications Medication Instructions Recorded Confirmed Last Taken Type PHENobarbitaL [PHENobarbital] 32.4 mg PO BID 06/08/13 07/23/19 07/23/19 History Ferrous Sulfate [Feosol 325 MG tab] 325 mg PO TID 04/18/15 07/23/19 07/23/19 History Acetaminophen [Mapap] 500 mg PO PRN PRN 06/29/19 07/23/19 Unknown History Aspirin EC [Halfprin EC] 81 mg PO QDAY 06/29/19 07/23/19 Unknown History Atorvastatin [Lipitor] 80 mg PO QHS 06/29/19 07/23/19 07/22/19 History Calcitriol [Rocaltrol] 0.25 mcg PO DAILY 06/29/19 07/23/19 07/23/19 History Gabapentin [Neurontin 250 mg/5 ml] 300 mg PO TID 06/29/19 07/23/19 Unknown History Multivit-Min/FA/Lycopen/Lutein 1 each PO DAILY 06/29/19 07/23/19 07/23/19 History [Centrum Silver Tablet] Pantoprazole [Protonix TAB] 40 mg PO QDAY 06/29/19 07/23/19 07/23/19 History Tamsulosin [Flomax] 0.4 mg PO QDAY 06/29/19 07/23/19 07/22/19 History Tiotropium [place] [Spiriva] 2 puff IH DAILY 06/29/19 07/23/19 07/23/19 History traMADoL [Ultram 50 MG tab] 50 mg PO Q6HR PRN 06/29/19 07/23/19 Unknown History Ascorbic Acid [Vitamin C] 500 mg PO BID 07/23/19 07/23/19 07/23/19 History Baclofen 5 mg PO TID 07/23/19 07/23/19 07/23/19 History Magnesium Oxide 400 400 mg PO BID 07/23/19 07/23/19 07/23/19 History Thiamine HCl [Vitamin B-1] 100 mg PO BID 07/23/19 07/23/19 07/23/19 History ALBUTEROL NEB's [Proventil 0.083% 2.5 mg IH Q4HRT PRN nebu 07/28/19 Unknown Rx NEBS] Levothyroxine Sodium [Tirosint] 200 mcg PO DAILY #30 cap 07/28/19 Unknown Rx Prednisone [predniSONE 10 mg 10 mg PO .TAPER #1 tab.ds.pk 07/28/19 Unknown Rx (6-Day Pack, 21 Tabs)] amLODIPine 5 mg PO QDAY tablet 07/28/19 Unknown Rx Active Meds: Active Medications Acetaminophen (Tylenol) 650 mg PO Q4H PRN PRN Reason: Pain MILD(1-3)/Fever >100.5/HERNANDEZ Albuterol (Proventil) 2.5 mg IH Q4HRT PRN PRN Reason: Shortness Of Breath Ascorbic Acid (Vitamin C) 500 mg PO BID [facility] Aspirin (Halfprin Ec) 81 mg PO QDAY [facility] Atorvastatin Calcium (Lipitor) 80 mg PO QHS [facility] Baclofen (Lioresal) 5 mg PO TID [facility] Budesonide (Pulmicort) 0.5 mg IH Q12HRT [facility] Calcitriol (Rocaltrol) 0.25 mcg PO DAILY [facility] Ferrous Sulfate (Feosol) 325 mg PO TID [facility] Gabapentin (Gabapentin) 300 mg PO TID [facility] Heparin Sodium (Porcine) (Heparin) 5,000 unit SUB-Q Q12HR [facility] Ceftriaxone Sodium (Rocephin/Ns 1 Gm/50 Ml) 1 gm in 50 mls @ 100 mls/hr IV Q24H [facility]; Protocol Levothyroxine Sodium (Synthroid) 150 mcg PO DAILY@0600 [facility] Magnesium Oxide (Mag-Ox) 400 mg PO BID [facility] Multivitamins/Minerals (Theragran-M Tab) 1 each PO QDAY [facility] Ondansetron HCl (Zofran) 4 mg IV Q8H PRN PRN Reason: Nausea And Vomiting Pantoprazole Sodium (Protonix) 40 mg PO QDAY [facility] Phenobarbital (Phenobarbital) 32.4 mg PO BID [facility] Sodium Chloride (Sodium Chloride Flush Syringe 10 Ml) 10 ml IV BID [facility] Sodium Chloride (Sodium Chloride Flush Syringe 10 Ml) 10 ml IV PRN PRN PRN Reason: LINE FLUSH Tamsulosin HCl (Flomax) 0.4 mg PO QDAY [facility] Thiamine HCl (Vitamin B-1) 100 mg PO BID [facility] Review of Systems All systems: negative Constitutional: chronic pain Exam - Physical Exam Narrative exam: Physical exam General appearance: Present: No acute distress, alert and oriented 3, mouth words, chronically ill-appearing, older adult male - EENT Eyes: Present: PERRL, EOM intact ENT: hearing intact, missing teeth - Neck Neck: Present: supple, normal ROM, tracheostomy - Respiratory Respiratory effort: Non-labored Respiratory: Clear throughout - Cardiovascular Heart rate: 80 (bpm) Rhythm: Sinus rhythm Heart Sounds: Present: S1 & S2. Absent: rub, click - Extremities Extremities: no ischemia, pulses intact, 2+ bilateral lower extremity pitting edema from knees to feet - Peripheral Assessment Peripheral Pulses: within normal limits - Abdominal General gastrointestinal: soft, non-tender, normal bowel sounds - Integumentary Integumentary: Present: warm, dry - Musculoskeletal Musculoskeletal: Able to move all extremities -Neurological Neurological: CN II-XII intact - Psychiatric Psychiatric:cooperative - Constitutional Vitals: Temp Pulse Resp BP Pulse Ox 98.1 F 80 12 154/88 100 07/23/19 20:50 07/23/19 21:00 07/23/19 21:00 07/23/19 21:31 07/23/19 21:31 Results - Labs CBC & Chem 7: 07/23/19 19:24 07/23/19 19:24 Labs: Laboratory Last Values WBC 3.4 K/mm3 (4.5-11.0) L 07/23/19 19:24 RBC 4.18 M/mm3 (3.65-5.03) 07/23/19 19:24 Hgb 12.9 gm/dl (11.8-15.2) 07/23/19 19:24 Hct 37.8 % (35.5-45.6) 07/23/19 19:24 MCV 90 fl (84-94) 07/23/19 19:24 MCH 31 pg (28-32) 07/23/19 19:24 MCHC 34 % (32-34) 07/23/19 19:24 RDW 14.8 % (13.2-15.2) 07/23/19 19:24 Plt Count 211 K/mm3 (140-440) 07/23/19 19:24 Lymph % (Auto) 25.7 % (13.4-35.0) 07/23/19 19:24 [place] % (Auto) 7.4 % (0.0-7.3) H 07/23/19 19:24 Eos % (Auto) 3.7 % (0.0-4.3) 07/23/19 19:24 Baso % (Auto) 0.8 % (0.0-1.8) 07/23/19 19:24 Lymph # 0.9 K/mm3 (1.2-5.4) L 07/23/19 19:24 [place] # 0.2 K/mm3 (0.0-0.8) 07/23/19 19:24 Eos # 0.1 K/mm3 (0.0-0.4) 07/23/19 19:24 Baso # 0.0 K/mm3 (0.0-0.1) 07/23/19 19:24 Seg Neutrophils % 62.4 % (40.0-70.0) 07/23/19 19:24 Seg Neutrophils # 2.1 K/mm3 (1.8-7.7) 07/23/19 19:24 Sodium 127 mmol/L (137-145) L 07/23/19 19:24 Potassium 4.0 mmol/L (3.6-5.0) 07/23/19 19:24 Chloride 89.0 mmol/L (98-107) L 07/23/19 19:24 Carbon Dioxide 21 mmol/L (22-30) L 07/23/19 19:24 Anion Gap 21 mmol/L 07/23/19 19:24 BUN 12 mg/dL (9-20) 07/23/19 19:24 Creatinine 1.0 mg/dL (0.8-1.5) 07/23/19 19:24 Estimated GFR > 60 ml/min 07/23/19 19:24 BUN/Creatinine Ratio 12 % 07/23/19 19:24 Glucose 96 mg/dL (75-100) 07/23/19 19:24 Osmolality 262 Mosm/kg 07/23/19 19:35 Calcium 8.5 mg/dL (8.4-10.2) 07/23/19 19:24 Total Bilirubin < 0.20 mg/dL (0.1-1.2) 07/23/19 19:24 Direct Bilirubin < 0.2 mg/dL (0-0.2) 07/23/19 19:24 Indirect Bilirubin 0.0 mg/dL 07/23/19 19:24 AST 73 units/L (5-40) H 07/23/19 19:24 ALT 71 units/L (7-56) H 07/23/19 19:24 Alkaline Phosphatase 145 units/L (35-129) H 07/23/19 19:24 NT-Pro-B Natriuret Pep 13.45 pg/mL (0-900) 07/23/19 19:24 Total Protein 7.5 g/dL (6.3-8.2) 07/23/19 19:24 Albumin 4.1 g/dL (3.9-5) 07/23/19 19:24 Albumin/Globulin Ratio 1.2 % 07/23/19 19:24 TSH > 100.000 mlU/mL (0.270-4.200) H 07/23/19 19:24 Free T4 0.10 ng/dL (0.76-1.46) L 07/23/19 19:24 Urine Color Straw (Yellow) 07/23/19 20:25 Urine Turbidity Slightly-cloudy (Clear) 07/23/19 20:25 Urine pH 7.0 (5.0-7.0) 07/23/19 20:25 Ur Specific [place] 1.010 (1.003-1.030) 07/23/19 20:25 Urine Protein <15 mg/dl mg/dL (Negative) 07/23/19 20:25 Urine Glucose (UA) Neg mg/dL (Negative) 07/23/19 20:25 Urine Ketones Neg mg/dL (Negative) 07/23/19 20:25 Urine Blood Lg (Negative) 07/23/19 20:25 Urine Nitrite Neg (Negative) 07/23/19 20:25 Urine Bilirubin Neg (Negative) 07/23/19 20:25 Urine Urobilinogen < 2.0 mg/dL (<2.0) 07/23/19 20:25 Ur Leukocyte Esterase Neg (Negative) 07/23/19 20:25 Urine WBC (Auto) 1.0 /HPF (0.0-6.0) 07/23/19 20:25 Urine RBC (Auto) > 182.0 /HPF (0.0-6.0) 07/23/19 20:25 U Epithel Cells (Auto) < 1.0 /HPF (0-13.0) 07/23/19 20:25 Urine Sodium 110 mmol/L 07/23/19 20:25 Urine Chloride 106.0 mmolL (110-250) L 07/23/19 20:25 - Imaging and Cardiology Imaging and Cardiology: CXR: FINDINGS: Support devices: Stable satisfactory device positioning. Heart: Within normal limits. Lungs/Pleura: Stable mild elevation of the left hemidiaphragm. Otherwise clear lungs. Additional findings: None. IMPRESSION: 1. No acute findings. Assessment and Plan Assessment and plan: 63-year-old -[place] male who is a resident of [facility] with history of laryngeal cancer status post trach, seizure, COPD, hyponatremia, hypothyroidism, EtOH abuse, hypertension, CVA, GERD, arthritis, anemia, HLD and chronic pain who presents to [facility] ED with complaints of hyponatremia. Hyponatremia -Na on admission 127 ( trending down from outpatient labs Na 131 on 06/24/19) -?? may be related to BLE edema -Hx of chronic hyponatremia -Received IV 20mg in ED -Nephrology consulted -Continue to monitor Urinary tract infection -UA positive for UTI -urine wbc>182 -Urine culture pending -on IV Abx Hypothyroidism -TSH> 100 -On Synthroid 150mcg (recently increased from 137mcg on 07/01/19 per outside medical records) -T3, T4 labs pending -Follow up on pending thyroid labs to see if Synthroid dose adjustment is needed -Will require outpatient follow up on TSH Bilateral lower extremity edema -may be due to undiagnosed cardiac issues -Received IV Lasix -Echo pending -Cardiology Consulted COPD -Albuterol prn -Scheduled Pulmicort HTN -Monitor BP -Start Norvasc 5mg daily HLD -Continue statin GERD -Continue Protonix Hx Seizure -Continue [place] and Phenobarbital Hx Laryngeal Cancer -S/P Trach -Perform Trach care prn DVT PPX -On Heparin Advance Directives: No VTE prophylaxis?: Chemical Plan of care discussed with patient/family: Yes <TG VILLARREAL - Last Filed: 08/03/19 23:28> History of Present Illness Date of admission: 07/23/19 20:50 Medications and Allergies Active Meds: Active Medications Acetaminophen (Tylenol) 650 mg PO Q4H PRN PRN Reason: Pain MILD(1-3)/Fever >100.5/HERNANDEZ Last Admin: 07/24/19 00:25 Dose: 325 mg Documented by: Albuterol (Proventil) 2.5 mg IH Q4HRT PRN PRN Reason: Shortness Of Breath Amlodipine Besylate (Amlodipine) 5 mg PO QDAY [facility] Ascorbic Acid (Vitamin C) 500 mg PO BID [facility] Last Admin: 07/24/19 00:47 Dose: Not Given Documented by: Aspirin (Halfprin Ec) 81 mg PO QDAY [facility] Atorvastatin Calcium (Lipitor) 80 mg PO QHS [facility] Last Admin: 07/24/19 00:24 Dose: 80 mg Documented by: Baclofen (Lioresal) 5 mg PO TID [facility] Budesonide (Pulmicort) 0.5 mg IH Q12HRT [facility] Calcitriol (Rocaltrol) 0.25 mcg PO DAILY [facility] Ferrous Sulfate (Feosol) 325 mg PO TID [facility] Gabapentin (Gabapentin) 300 mg PO TID [facility] Heparin Sodium (Porcine) (Heparin) 5,000 unit SUB-Q Q12HR [facility] Last Admin: 07/24/19 00:28 Dose: 5,000 unit Documented by: Ceftriaxone Sodium (Rocephin/Ns 1 Gm/50 Ml) 1 gm in 50 mls @ 100 mls/hr IV Q24H [facility]; Protocol Last Admin: 07/24/19 00:28 Dose: 100 mls/hr Documented by: Levothyroxine Sodium (Synthroid) 150 mcg PO DAILY@0600 [facility] Magnesium Oxide (Mag-Ox) 400 mg PO BID [facility] Last Admin: 07/24/19 00:25 Dose: 400 mg Documented by: Multivitamins/Minerals (Theragran-M Tab) 1 each PO QDAY [facility] Ondansetron HCl (Zofran) 4 mg IV Q8H PRN PRN Reason: Nausea And Vomiting Pantoprazole Sodium (Protonix) 40 mg PO QDAY [facility] Phenobarbital (Phenobarbital) 32.4 mg PO BID [facility] Last Admin: 07/24/19 00:25 Dose: 32.4 mg Documented by: Sodium Chloride (Sodium Chloride Flush Syringe 10 Ml) 10 ml IV BID [facility] Last Admin: 07/24/19 00:27 Dose: 10 ml Documented by: Sodium Chloride (Sodium Chloride Flush Syringe 10 Ml) 10 ml IV PRN PRN PRN Reason: LINE FLUSH Tamsulosin HCl (Flomax) 0.4 mg PO QDAY [facility] Thiamine HCl (Vitamin B-1) 100 mg PO BID [facility] Last Admin: 07/24/19 00:26 Dose: 100 mg Documented by: Exam - Constitutional Vitals: Temp Pulse Resp BP Pulse Ox 98.7 F 86 20 163/96 97 07/23/19 23:57 07/24/19 00:27 07/23/19 23:57 07/24/19 00:27 07/23/19 23:57 Results - Labs CBC & Chem 7: 07/24/19 05:17 07/28/19 06:29 Labs: Laboratory Last Values WBC 3.4 K/mm3 (4.5-11.0) L 07/23/19 19:24 RBC 4.18 M/mm3 (3.65-5.03) 07/23/19 19:24 Hgb 12.9 gm/dl (11.8-15.2) 07/23/19 19:24 Hct 37.8 % (35.5-45.6) 07/23/19 19:24 MCV 90 fl (84-94) 07/23/19 19:24 MCH 31 pg (28-32) 07/23/19 19:24 MCHC 34 % (32-34) 07/23/19 19:24 RDW 14.8 % (13.2-15.2) 07/23/19 19:24 Plt Count 211 K/mm3 (140-440) 07/23/19 19:24 Lymph % (Auto) 25.7 % (13.4-35.0) 07/23/19 19:24 [place] % (Auto) 7.4 % (0.0-7.3) H 07/23/19 19:24 Eos % (Auto) 3.7 % (0.0-4.3) 07/23/19 19:24 Baso % (Auto) 0.8 % (0.0-1.8) 07/23/19 19:24 Lymph # 0.9 K/mm3 (1.2-5.4) L 07/23/19 19:24 [place] # 0.2 K/mm3 (0.0-0.8) 07/23/19 19:24 Eos # 0.1 K/mm3 (0.0-0.4) 07/23/19 19:24 Baso # 0.0 K/mm3 (0.0-0.1) 07/23/19 19:24 Seg Neutrophils % 62.4 % (40.0-70.0) 07/23/19 19:24 Seg Neutrophils # 2.1 K/mm3 (1.8-7.7) 07/23/19 19:24 Sodium 127 mmol/L (137-145) L 07/23/19 19:24 Potassium 4.0 mmol/L (3.6-5.0) 07/23/19 19:24 Chloride 89.0 mmol/L (98-107) L 07/23/19 19:24 Carbon Dioxide 21 mmol/L (22-30) L 07/23/19 19:24 Anion Gap 21 mmol/L 07/23/19 19:24 BUN 12 mg/dL (9-20) 07/23/19 19:24 Creatinine 1.0 mg/dL (0.8-1.5) 07/23/19 19:24 Estimated GFR > 60 ml/min 07/23/19 19:24 BUN/Creatinine Ratio 12 % 07/23/19 19:24 Glucose 96 mg/dL (75-100) 07/23/19 19:24 Osmolality 262 Mosm/kg 07/23/19 19:35 Calcium 8.5 mg/dL (8.4-10.2) 07/23/19 19:24 Total Bilirubin < 0.20 mg/dL (0.1-1.2) 07/23/19 19:24 Direct Bilirubin < 0.2 mg/dL (0-0.2) 07/23/19 19:24 Indirect Bilirubin 0.0 mg/dL 07/23/19 19:24 AST 73 units/L (5-40) H 07/23/19 19:24 ALT 71 units/L (7-56) H 07/23/19 19:24 Alkaline Phosphatase 145 units/L (35-129) H 07/23/19 19:24 NT-Pro-B Natriuret Pep 13.45 pg/mL (0-900) 07/23/19 19:24 Total Protein 7.5 g/dL (6.3-8.2) 07/23/19 19:24 Albumin 4.1 g/dL (3.9-5) 07/23/19 19:24 Albumin/Globulin Ratio 1.2 % 07/23/19 19:24 TSH > 100.000 mlU/mL (0.270-4.200) H 07/23/19 19:24 Free T4 0.10 ng/dL (0.76-1.46) L 07/23/19 21:34 Thyroxine (T4) 0.4 ug/dL (4.0-12.0) L 07/23/19 21:34 Urine Color Straw (Yellow) 07/23/19 20:25 Urine Turbidity Slightly-cloudy (Clear) 07/23/19 20:25 Urine pH 7.0 (5.0-7.0) 07/23/19 20:25 Ur Specific [place] 1.010 (1.003-1.030) 07/23/19 20:25 Urine Protein <15 mg/dl mg/dL (Negative) 07/23/19 20:25 Urine Glucose (UA) Neg mg/dL (Negative) 07/23/19 20:25 Urine Ketones Neg mg/dL (Negative) 07/23/19 20:25 Urine Blood Lg (Negative) 07/23/19 20:25 Urine Nitrite Neg (Negative) 07/23/19 20:25 Urine Bilirubin Neg (Negative) 07/23/19 20: Urine Urobilinogen < 2.0 mg/dL (<2.0) 07/23/19 20:25 Ur Leukocyte Esterase Neg (Negative) 07/23/19 20:25 Urine WBC (Auto) 1.0 /HPF (0.0-6.0) 07/23/19 20:25 Urine RBC (Auto) > 182.0 /HPF (0.0-6.0) 07/23/19 20:25 U Epithel Cells (Auto) < 1.0 /HPF (0-13.0) 07/23/19 20:25 Urine Sodium 110 mmol/L 07/23/19 20:25 Urine Chloride 106.0 mmolL (110-250) L 07/23/19 20:25 Assessment and Plan Assessment and plan: 64-year-old man with a history of hypertension, COPD, hyperlipidemia, seizure, BPH, laryngeal cancer status post trach was sent to the emergency room for evaluation of hyponatremia. the patient has hypothyroidism, recently started on treatment and his dose is supposed to be increase per records. His lower extremity edema most likely secondary to uncontrolled hypothyroidism leading to hyponatremia, however rule out cardiac cause. Agree with plan as stated above, add lasix
[2019-07-23] MEDS ORDERED: amLODIPine 5 MG TAB PO ONE (22:33)
[2019-07-24] MEDS: MAGNESIUM OXIDE 400 MG TAB PO SCH ×3 (00:25→22:12)
[2019-07-24] MEDS: PHENobarbital 32.4 MG TAB PO SCH ×3 (00:25→22:12)
[2019-07-24] MEDS: ACETAMINOPHEN 325 MG TAB PO PRN ×2 (00:25→10:05)
[2019-07-24] MEDS: THIAMINE 100 MG TAB PO SCH ×3 (00:26→22:15)
[2019-07-24] MEDS: HEPARIN 5,000 UNIT/1 ML VIAL SUB-Q SCH ×3 (00:28→22:12)
[2019-07-24] MEDS: cefTRIAXone/NS 1 GM/50 ML 1 GM/50 ML BAG IV SCH ×2 (00:28→22:23)
[2019-07-24] MEDS: ASCORBIC ACID 500 MG TAB PO SCH ×3 (00:47→22:12)
[2019-07-24] MEDS ORDERED: LEVOTHYROXINE 150 MCG TAB PO SCH ×2 (06:00→09:25)
[2019-07-24] MEDS ORDERED: LEVOTHYROXINE 100 MCG TAB PO SCH (06:00)
[2019-07-24 06:23] LABS: Basophils % (Auto) 0.7 % (0.0-1.8); Eosinophils # (Auto) 0.2 K/mm3 (0.0-0.4); Eosinophils % (Auto) 5.1 % (0.0-4.3); Hematocrit 39.6 % (35.5-45.6); Hemoglobin 13.5 gm/dl (11.8-15.2); Lymphocytes # (Auto) 1.1 K/mm3 (1.2-5.4); Lymphocytes % (Auto) 35.3 % (13.4-35.0); Mean Corpuscular HGB Conc 34 % (32-34); Mean Corpuscular Volume 90 fl (84-94); Monocytes # (Auto) 0.2 K/mm3 (0.0-0.8); Monocytes % (Auto) 7.3 % (0.0-7.3); Platelet Count 221 K/mm3 (140-440); Red Blood Count 4.42 M/mm3 (3.65-5.03); Red Cell Distribution Width 14.8 % (13.2-15.2)
[2019-07-24 06:42] LABS: BUN/Creatinine Ratio 11; Blood Urea Nitrogen 11 mg/dL (9-20); Calcium 8.6 mg/dL (8.4-10.2); Hemolysis Index 11
[2019-07-24] MEDS: BUDESONIDE 0.5 MG/2 ML NEBU IH SCH ×2 (07:36→21:03)
[2019-07-24] MEDS ORDERED: NON-FORMULARY EACH (Baclofen [Baclofen] 5 MG) PO SCH (08:00)
--- NOTE | 2019-07-24 09:12 | Progress Note ---
Assessment and Plan Assessment and plan: 63-year-old -I[place]ian male who is a resident of [facility] with history of laryngeal cancer status post trach, seizure, COPD, hyponatremia, hypothyroidism, EtOH abuse, hypertension, CVA, GERD, arthritis, anemia, HLD and chronic pain who presents to [facility] ED with complaints of hyponatremia. --Myxedema IV steroids, IV Synthroid Repeat thyroid function tests Patient may need to follow outpatient gerontology aide upon discharge --Hyponatremia: Gradually improving, probably secondary to myxedema Patient has Hx of chronic hyponatremia Closely monitor --Urinary tract infection: Empiric antibiotics. Follow cultures ID evaluation if needed --Bilateral lower extremity edema, due to myxedema IV Synthroid, steroids IV diuretics, follow echocardiogram Follow echocardiogram Consults cardiology as needed --History of COPD; Nebulizers as needed --HTN Moderate control Continue current antihypertensives and when necessary medications --Dyslipidemia On statin --GERD Continue Protonix --Hx Seizure; precautions discussed this Continue Bacolfen and Phenobarbital --Hx Laryngeal Cancer S/P Trach, tracheostomy care --DVT prophylaxis Advance Directives: No VTE prophylaxis?: Chemical Plan of care discussed with patient/family: Yes Critical care time 35 minutes History Interval history: Patient seen and examined medical records reviewed Patient was admitted with hyponatremia and myxedema Patient complaints of generalized body pains Request for pain medication Tracheostomy Vital signs stable Hospitalist Physical - Constitutional Vitals: Temp Pulse Resp BP Pulse Ox 98.1 F 79 18 131/69 97 07/24/19 06:04 07/24/19 06:04 07/24/19 08:23 07/24/19 06:04 07/24/19 06:04 General appearance: Present: no acute distress, well-nourished, other ( tracheostomy) - EENT Eyes: Present: PERRL, EOM intact ENT: clear oral mucosa - Respiratory Respiratory effort: normal Respiratory: bilateral: diminished, rhonchi, negative: rales, wheezing - Cardiovascular Rhythm: regular Heart Sounds: Present: S1 & S2 - Extremities Extremities: no ischemia Extremity abnormal: edema - Abdominal General gastrointestinal: soft, non-tender, non-distended, normal bowel sounds - Integumentary Integumentary: Present: clear, warm - Psychiatric Psychiatric: appropriate mood/affect, cooperative - Neurologic Neurologic: moves all extremities Results - Labs CBC & Chem 7: 07/24/19 05:17 12/07/19 05:17 Labs: Laboratory Last Values WBC 3.1 K/mm3 (4.5-11.0) L 07/24/19 05:17 RBC 4.42 M/mm3 (3.65-5.03) 07/24/19 05:17 Hgb 13.5 gm/dl (11.8-15.2) 07/24/19 05:17 Hct 39.6 % (35.5-45.6) 07/24/19 05:17 MCV 90 fl (84-94) 07/24/19 05:17 MCH 31 pg (28-32) 07/24/19 05:17 MCHC 34 % (32-34) 07/24/19 05:17 RDW 14.8 % (13.2-15.2) 07/24/19 05:17 Plt Count 221 K/mm3 (140-440) 07/24/19 05:17 Lymph % (Auto) 35.3 % (13.4-35.0) H 07/24/19 05:17 [place] % (Auto) 7.3 % (0.0-7.3) 07/24/19 05:17 Eos % (Auto) 5.1 % (0.0-4.3) H 07/24/19 05:17 Baso % (Auto) 0.7 % (0.0-1.8) 07/24/19 05:17 Lymph # 1.1 K/mm3 (1.2-5.4) L 07/24/19 05:17 [place] # 0.2 K/mm3 (0.0-0.8) 07/24/19 05:17 Eos # 0.2 K/mm3 (0.0-0.4) 07/24/19 05:17 Baso # 0.0 K/mm3 (0.0-0.1) 07/24/19 05:17 Seg Neutrophils % 51.6 % (40.0-70.0) 07/24/19 05:17 Seg Neutrophils # 1.6 K/mm3 (1.8-7.7) L 07/24/19 05:17 Sodium 130 mmol/L (137-145) L 07/24/19 05:17 Potassium 3.7 mmol/L (3.6-5.0) 07/24/19 05:17 Chloride 89.7 mmol/L (98-107) L 07/24/19 05:17 Carbon Dioxide 22 mmol/L (22-30) 07/24/19 05:17 Anion Gap 22 mmol/L 07/24/19 05:17 BUN 11 mg/dL (9-20) 07/24/19 05:17 Creatinine 1.0 mg/dL (0.8-1.5) 07/24/19 05:17 Estimated GFR > 60 ml/min 07/24/19 05:17 BUN/Creatinine Ratio 11 % 07/24/19 05:17 Glucose 81 mg/dL (75-100) 07/24/19 05:17 Osmolality 262 Mosm/kg 07/23/19 19:35 Calcium 8.6 mg/dL (8.4-10.2) 07/24/19 05:17 Total Bilirubin < 0.20 mg/dL (0.1-1.2) 07/23/19 19:24 Direct Bilirubin < 0.2 mg/dL (0-0.2) 07/23/19 19:24 Indirect Bilirubin 0.0 mg/dL 07/23/19 19:24 AST 73 units/L (5-40) H 07/23/19 19:24 ALT 71 units/L (7-56) H 07/23/19 19:24 Alkaline Phosphatase 145 units/L (35-129) H 07/23/19 19:24 NT-Pro-B Natriuret Pep 13.45 pg/mL (0-900) 07/23/19 19:24 Total Protein 7.5 g/dL (6.3-8.2) 07/23/19 19:24 Albumin 4.1 g/dL (3.9-5) 07/23/19 19:24 Albumin/Globulin Ratio 1.2 % 07/23/19 19:24 TSH > 100.000 mlU/mL (0.270-4.200) H 07/23/19 19:24 Free T4 0.10 ng/dL (0.76-1.46) L 07/23/19 21:34 Thyroxine (T4) 0.4 ug/dL (4.0-12.0) L 07/23/19 21:34 Urine Color Straw (Yellow) 07/23/19 20:25 Urine Turbidity Slightly-cloudy (Clear) 07/23/19 20:25 Urine pH 7.0 (5.0-7.0) 07/23/19 20:25 Ur Specific [place] 1.010 (1.003-1.030) 07/23/19 20:25 Urine Protein <15 mg/dl mg/dL (Negative) 07/23/19 20:25 Urine Glucose (UA) Neg mg/dL (Negative) 07/23/19 20:25 Urine Ketones Neg mg/dL (Negative) 07/23/19 20:25 Urine Blood Lg (Negative) 07/23/19 20:25 Urine Nitrite Neg (Negative) 07/23/19 20:25 Urine Bilirubin Neg (Negative) 07/23/19 20:25 Urine Urobilinogen < 2.0 mg/dL (<2.0) 07/23/19 20:25 Ur Leukocyte Esterase Neg (Negative) 07/23/19 20:25 Urine WBC (Auto) 1.0 /HPF (0.0-6.0) 07/23/19 20:25 Urine RBC (Auto) > 182.0 /HPF (0.0-6.0) 07/23/19 20:25 U Epithel Cells (Auto) < 1.0 /HPF (0-13.0) 07/23/19 20:25 Urine Sodium 110 mmol/L 07/23/19 20:25 Urine Chloride 106.0 mmolL (110-250) L 07/23/19 20:25 Active Medications - Current Medications Current Medications: Generic Name Dose Route Start Last Admin Trade Name Freq PRN Reason Stop Dose Admin Acetaminophen 650 mg 07/23/19 20:50 07/24/19 00:25 Tylenol PO 325 mg Q4H PRN Administration Pain MILD(1-3)/Fever >100.5/HERNANDEZ Albuterol 2.5 mg 07/23/19 22:08 Proventil IH Q4HRT PRN Shortness Of Breath Amlodipine Besylate 5 mg 07/24/19 10:00 Amlodipine PO QDAY [facility] Ascorbic Acid 500 mg 07/23/19 22:00 07/24/19 00:47 Vitamin C PO Not Given BID [facility] Aspirin 81 mg 07/24/19 10:00 Halfprin Ec PO QDAY [facility] Atorvastatin Calcium 80 mg 07/23/19 22:00 07/24/19 00:24 Lipitor PO 80 mg QHS KOLBY Administration Baclofen 5 mg 07/24/19 08:00 Lioresal PO TID [facility] Budesonide 0.5 mg 07/24/19 08:00 07/24/19 07:36 Pulmicort IH 0.5 mg Q12HRT KOLBY Administration Calcitriol 0.25 mcg 07/24/19 10:00 Rocaltrol PO DAILY [facility] Ferrous Sulfate 325 mg 07/24/19 08:00 Feosol PO TID [facility] Furosemide 20 mg 07/24/19 10:00 Lasix IV QDAY [facility] Gabapentin 300 mg 07/24/19 08:00 Gabapentin PO TID [facility] Heparin Sodium (Porcine) 5,000 unit 07/23/19 22:00 07/24/19 00:28 Heparin SUB-Q 5,000 unit Q12HR KOLBY Administration Ceftriaxone Sodium 1 gm in 50 mls @ 100 mls/hr 07/23/19 22:00 07/24/19 00:28 Rocephin/Ns 1 Gm/50 Ml IV 100 mls/hr Q24H KOLBY Administration Protocol Levothyroxine Sodium 150 mcg 07/24/19 06:00 07/24/19 07:34 Synthroid PO 150 mcg DAILY@0600 [facility] Administration Magnesium Oxide 400 mg 07/23/19 22:00 07/24/19 00:25 Mag-Ox PO 400 mg BID [facility] Administration Multivitamins/Minerals 1 each 07/24/19 10:00 Theragran-M Tab PO QDAY [facility] Ondansetron HCl 4 mg 07/23/19 20:50 Zofran IV Q8H PRN Nausea And Vomiting Pantoprazole Sodium 40 mg 07/24/19 10:00 Protonix PO QDAY [facility] Phenobarbital 32.4 mg 07/23/19 22:00 07/24/19 00:25 Phenobarbital PO 32.4 mg BID KOLBY Administration Sodium Chloride 10 ml 07/23/19 22:00 07/24/19 00:27 Sodium Chloride Flush Syringe 10 Ml IV 10 ml BID KOLBY Administration Sodium Chloride 10 ml 07/23/19 20:50 Sodium Chloride Flush Syringe 10 Ml IV PRN PRN LINE FLUSH Tamsulosin HCl 0.4 mg 07/24/19 10:00 Flomax PO QDAY [facility] Thiamine HCl 100 mg 07/23/19 22:00 07/24/19 00:26 Vitamin B-1 PO 100 mg BID KOLBY Administration
[2019-07-24] MEDS: BACLOFEN 10 MG TAB PO SCH ×3 (09:54→22:11)
[2019-07-24] MEDS: MULTIVITAMINS,THER W-MINERALS TAB PO SCH (09:54)
[2019-07-24] MEDS: FERROUS SULFATE 325 MG TAB PO SCH ×3 (09:55→22:12)
[2019-07-24] MEDS: CALCITRIOL 0.25 MCG CAP PO SCH (09:55)
[2019-07-24] MEDS: ASPIRIN EC 81 MG TAB PO SCH (09:55)
[2019-07-24] MEDS: TAMSULOSIN 0.4 MG CAP PO SCH (09:55)
[2019-07-24] MEDS: amLODIPine 5 MG TAB PO SCH (09:55)
[2019-07-24] MEDS: PANTOPRAZOLE 40 MG TAB PO SCH (09:56)
[2019-07-24] MEDS ORDERED: LYCOPEN PO SCH (10:00)
[2019-07-24] MEDS ORDERED: [UNRECOGNIZED DRUG - OTHER] PO SCH (10:00)
[2019-07-24] MEDS ORDERED: MULTIVIT MIN PO SCH (10:00)
[2019-07-24] MEDS: GABAPENTIN 500 MG/10 ML ORAL LIQD PO SCH ×4 (10:00→22:11)
[2019-07-24] MEDS ORDERED: LUTEIN PO SCH (10:00)
[2019-07-24 11:31] LABS: Free T4 (Free Thyroxine) 0.27 ng/dL (0.76-1.46)
--- NOTE | 2019-07-24 12:41 | Consultation ---
History of Present Illness - Reason for Consult Consult date: 07/24/19 hyponatremia - History of Present Illness Mr. Sawant is a 63yo with of laryngeal cancer status post tracheostomy, COPD, hyponatremia, and hypothyroidism who presented to the ED due to hyponatermia on outpatient labs. Patient also w/ worsening leg edema. Outpatient labs were recently notable for TSH 50.65 and Free T4 0.58, and he was seen by endocrinology who recommended cardiac evaluation. In the ED, sodium 127. Nephrology consulted - IV diuresis was recommended. He has been admitted for further management. Past History Past Medical History: anemia, arthritis, cancer (laryngeal), COPD, GERD, hypertension, hyperlipidemia, hypothyroidism, seizures, stroke, other (hyponatr emia, EtOH abuse, chronic pain) Past Surgical History: Other (s/p tracheostomy, prostate surgery, brain surgery) Social history: full code, other (resident of [facility]) Family history: no significant family history Medications and Allergies Allergies Allergy/AdvReac Type Severity Reaction Status Date / Time No Known Allergies Allergy Verified 06/29/13 09:59 Home Medications Medication Instructions Recorded Confirmed Last Taken Type PHENobarbitaL [PHENobarbital] 32.4 mg PO BID 06/08/13 07/23/19 07/23/19 History Ferrous Sulfate [Feosol 325 MG tab] 325 mg PO TID 04/18/15 07/23/19 07/23/19 History Acetaminophen [Mapap] 500 mg PO PRN PRN 06/29/19 07/23/19 Unknown History Aspirin EC [Halfprin EC] 81 mg PO QDAY 06/29/19 07/23/19 Unknown History Atorvastatin [Lipitor Tab] 80 mg PO QHS 06/29/19 07/23/19 07/22/19 History Calcitriol [Rocaltrol] 0.25 mcg PO DAILY 06/29/19 07/23/19 07/23/19 History Gabapentin [Neurontin] 300 mg PO TID 06/29/19 07/23/19 Unknown History Levothyroxine Sodium [Tirosint] 150 mcg PO DAILY 06/29/19 07/23/19 07/23/19 History Multivit-Min/FA/Lycopen/Lutein 1 each PO DAILY 06/29/19 07/23/19 07/23/19 History [Centrum Silver Tablet] Pantoprazole [Protonix] 40 mg PO QDAY 06/29/19 07/23/19 07/23/19 History Tamsulosin [Flomax] 0.4 mg PO QDAY 06/29/19 07/23/19 07/22/19 History Tiotropium [place] [Spiriva] 2 puff IH DAILY 06/29/19 07/23/19 07/23/19 History traMADoL [Ultram] 50 mg PO Q6HR PRN 06/29/19 07/23/19 Unknown History Ascorbic Acid [Vitamin C] 500 mg PO BID 07/23/19 07/23/19 07/23/19 History Baclofen 5 mg PO TID 07/23/19 07/23/19 07/23/19 History Magnesium Oxide 400 400 mg PO BID 07/23/19 07/23/19 07/23/19 History Thiamine HCl [Vitamin B-1] 100 mg PO BID 07/23/19 07/23/19 07/23/19 History Active Meds: Active Medications Acetaminophen (Tylenol) 650 mg PO Q4H PRN PRN Reason: Pain MILD(1-3)/Fever >100.5/HERNANDEZ Last Admin: 07/24/19 10:05 Dose: 650 mg Documented by: Albuterol (Proventil) 2.5 mg IH Q4HRT PRN PRN Reason: Shortness Of Breath Amlodipine Besylate (Amlodipine) 5 mg PO QDAY [facility] Last Admin: 07/24/19 09:55 Dose: 5 mg Documented by: Ascorbic Acid (Vitamin C) 500 mg PO BID [facility] Last Admin: 07/24/19 09:56 Dose: 500 mg Documented by: Aspirin (Halfprin Ec) 81 mg PO QDAY [facility] Last Admin: 07/24/19 09:55 Dose: 81 mg Documented by: Atorvastatin Calcium (Lipitor) 80 mg PO QHS [facility] Last Admin: 07/24/19 00:24 Dose: 80 mg Documented by: Baclofen (Lioresal) 5 mg PO TID [facility] Last Admin: 07/24/19 09:54 Dose: 5 mg Documented by: Budesonide (Pulmicort) 0.5 mg IH Q12HRT [facility] Last Admin: 07/24/19 07:36 Dose: 0.5 mg Documented by: Calcitriol (Rocaltrol) 0.25 mcg PO DAILY [facility] Last Admin: 07/24/19 09:55 Dose: 0.25 mcg Documented by: Ferrous Sulfate (Feosol) 325 mg PO TID [facility] Last Admin: 07/24/19 09:55 Dose: 325 mg Documented by: Furosemide (Lasix) 20 mg IV QDAY [facility] Gabapentin (Gabapentin) 300 mg PO TID [facility] Heparin Sodium (Porcine) (Heparin) 5,000 unit SUB-Q Q12HR [facility] Last Admin: 07/24/19 09:57 Dose: 5,000 unit Documented by: Hydrocortisone Sodium Succinate (Solu-Cortef) 100 mg IV Q8HR [facility] Ceftriaxone Sodium (Rocephin/Ns 1 Gm/50 Ml) 1 gm in 50 mls @ 100 mls/hr IV Q24H [facility]; Protocol Last Admin: 07/24/19 00:28 Dose: 100 mls/hr Documented by: Levothyroxine Sodium (Synthroid) 200 mcg IV DAILY@0600 [facility] Magnesium Oxide (Mag-Ox) 400 mg PO BID [facility] Last Admin: 07/24/19 09:55 Dose: 400 mg Documented by: Multivitamins/Minerals (Theragran-M Tab) 1 each PO QDAY [facility] Last Admin: 07/24/19 09:54 Dose: 1 each Documented by: Ondansetron HCl (Zofran) 4 mg IV Q8H PRN PRN Reason: Nausea And Vomiting Pantoprazole Sodium (Protonix) 40 mg PO QDAY [facility] Last Admin: 07/24/19 09:56 Dose: 40 mg Documented by: Phenobarbital (Phenobarbital) 32.4 mg PO BID [facility] Last Admin: 07/24/19 09:55 Dose: 32.4 mg Documented by: Sodium Chloride (Sodium Chloride Flush Syringe 10 Ml) 10 ml IV BID [facility] Last Admin: 07/24/19 10:05 Dose: 10 ml Documented by: Sodium Chloride (Sodium Chloride Flush Syringe 10 Ml) 10 ml IV PRN PRN PRN Reason: LINE FLUSH Tamsulosin HCl (Flomax) 0.4 mg PO QDAY [facility] Last Admin: 07/24/19 09:55 Dose: 0.4 mg Documented by: Thiamine HCl (Vitamin B-1) 100 mg PO BID [facility] Last Admin: 07/24/19 09:55 Dose: 100 mg Documented by: Review of Systems ROS unobtainable: due to endotracheal tube Exam - Vital Signs Vital signs: Vital Signs Pulse Resp BP Pulse Ox 88 12 154/89 98 07/23/19 18:43 07/23/19 18:43 07/23/19 18:43 07/23/19 18:43 - General Appearance General appearance: well-developed, well-nourished EENT: ATNC Neck: Present: Other (trach) Respiratory: Clear to Ascultation Heart: regular, S1S2 Gastrointestinal: Present: normal. Absent: tenderness, distended Integumentary: warm and dry Neurologic: no focal deficit Musculoskeletal: Present: other (trace edema) Psychiatric: cooperative Results - Lab Results 07/24/19 05:17 07/24/19 05:17 Most recent lab results Calcium 8.6 mg/dL (8.4-10.2) 07/24/19 05:17 Urine Sodium 110 mmol/L 07/23/19 20:25 Assessment and Plan Impression: * Hyponatremia - asymptomatic * Peripheral edema * Hypothyroidism * Hx of Laryngeal cancer s/p trach * Microscopic hematuria Plan: * Continue IV diuresis - 20mg IV lasix daily * TTE pending * Management of hypothyroidism per primary team * Renal ultrasound in light of hematuria * Abx per primary team * Avoid potential nephrotoxins * Strict I/O
[2019-07-24] MEDS: HYDROCORTISONE SOD SUCC 100 MG/2 ML VIAL IV SCH ×2 (15:25→22:13)
[2019-07-24] MEDS: FUROSEMIDE 40 MG/4 ML INJ IV SCH (15:29)
[2019-07-25 05:58] LABS: Alanine Aminotransferase 61 units/L (7-56); Albumin 4.2 g/dL (3.9-5); BUN/Creatinine Ratio 9; Blood Urea Nitrogen 11 mg/dL (9-20); Calcium 8.5 mg/dL (8.4-10.2); Hemolysis Index 2
[2019-07-25 06:05] LABS: Bilirubin,Direct < 0.2 mg/dL (0-0.2)
[2019-07-25 06:15] LABS: Free T4 (Free Thyroxine) 0.2 ng/dL (0.76-1.46)
[2019-07-25] MEDS: LEVOTHYROXINE 100 MCG INJ IV SCH (06:34)
[2019-07-25] MEDS: HYDROCORTISONE SOD SUCC 100 MG/2 ML VIAL IV SCH ×3 (06:34→22:26)
[2019-07-25] MEDS: BUDESONIDE 0.5 MG/2 ML NEBU IH SCH ×2 (07:58→20:17)
[2019-07-25] MEDS: CALCITRIOL 0.25 MCG CAP PO SCH (09:55)
[2019-07-25] MEDS: PANTOPRAZOLE 40 MG TAB PO SCH (09:55)
[2019-07-25] MEDS: BACLOFEN 10 MG TAB PO SCH ×3 (09:55→22:25)
[2019-07-25] MEDS: HEPARIN 5,000 UNIT/1 ML VIAL SUB-Q SCH ×2 (09:56→22:26)
[2019-07-25] MEDS: MULTIVITAMINS,THER W-MINERALS TAB PO SCH (09:56)
[2019-07-25] MEDS: THIAMINE 100 MG TAB PO SCH ×2 (09:56→22:25)
[2019-07-25] MEDS: PHENobarbital 32.4 MG TAB PO SCH ×2 (09:56→22:27)
[2019-07-25] MEDS: ASCORBIC ACID 500 MG TAB PO SCH ×2 (09:56→22:25)
[2019-07-25] MEDS: FUROSEMIDE 40 MG/4 ML INJ IV SCH (09:56)
[2019-07-25] MEDS: MAGNESIUM OXIDE 400 MG TAB PO SCH ×2 (09:56→22:27)
[2019-07-25] MEDS: GABAPENTIN 500 MG/10 ML ORAL LIQD PO SCH ×3 (09:57→22:25)
[2019-07-25] MEDS: amLODIPine 5 MG TAB PO SCH (09:57)
[2019-07-25] MEDS: TAMSULOSIN 0.4 MG CAP PO SCH (09:57)
[2019-07-25] MEDS: ASPIRIN EC 81 MG TAB PO SCH (09:58)
[2019-07-25] MEDS: FERROUS SULFATE 325 MG TAB PO SCH ×3 (09:58→22:30)
[2019-07-25] MEDS: ACETAMINOPHEN 325 MG TAB PO PRN (10:05)
--- NOTE | 2019-07-25 10:45 | Progress Note ---
Assessment and Plan Assessment and plan: 63-year-old male patient resident of [facility] with history of laryngeal cancer status post tracheostomy seizures COPD was admitted through emergency room with hyponatremia, severe hypothyroidism/myxedema with very high TSH and low T3-T4 Patient is started on IV Synthroid, IV hydrocortisone, TSH numbers slightly improved, Patient is more alert and awake, responding appropriately. --Myxedema; severe hypothyroidism Thyroid function tests slightly improved Continue IV steroids, IV Synthroid We will start tapering steroids from tomorrow Follow-up with relocation counselor upon discharge --Hyponatremia: Gradually improving, probably secondary to myxedema Patient has Hx of chronic hyponatremia, nephrology following --Urinary tract infection: Empiric antibiotics. Follow cultures ID evaluation if needed --Bilateral lower extremity edema, due to myxedema, IV Synthroid, steroids IV diuretics, ejection fraction on echocardiogram --History of COPD; Nebulizers as needed --HTN: Moderate control Continue current antihypertensives and when necessary medications --Dyslipidemia : Continue statin --GERD:Continue Protonix --Hx Seizure; seizure precautions Continue Bacolfen and Phenobarbital --Hx Laryngeal Cancer S/P Trach, tracheostomy care --DVT prophylaxis Full CODE STATUS Monitor closely and adjust management as needed Plan of care reviewed with the patient and his nurse History Interval history: Patient seen and examined medical records reviewed Patient is sitting up in the bed comfortable Generalized edema significantly improved Alert awake oriented Vital signs reviewed Hospitalist Physical - Constitutional Vitals: Temp Pulse Resp BP Pulse Ox 97.9 F 97 H 18 137/78 98 07/25/19 05:35 07/25/19 09:57 07/25/19 08:00 07/25/19 09:57 07/25/19 08:54 General appearance: Present: no acute distress, well-nourished, other ( tracheostomy) - EENT Eyes: Present: PERRL, EOM intact - Neck Neck: Present: supple, normal ROM - Respiratory Respiratory effort: normal Respiratory: bilateral: diminished, negative: rales, rhonchi, wheezing - Cardiovascular Rhythm: regular Heart Sounds: Present: S1 & S2 - Extremities Extremities: no ischemia Extremity abnormal: edema - Abdominal General gastrointestinal: soft, non-tender, non-distended, normal bowel sounds - Integumentary Integumentary: Present: clear, warm - Psychiatric Psychiatric: appropriate mood/affect, cooperative - Neurologic Neurologic: CNII-XII intact, moves all extremities Results - Labs CBC & Chem 7: 07/24/19 05:17 07/25/19 04:29 Labs: Laboratory Last Values WBC 3.1 K/mm3 (4.5-11.0) L 07/24/19 05:17 RBC 4.42 M/mm3 (3.65-5.03) 07/24/19 05:17 Hgb 13.5 gm/dl (11.8-15.2) 07/24/19 05:17 Hct 39.6 % (35.5-45.6) 07/24/19 05:17 MCV 90 fl (84-94) 07/24/19 05:17 MCH 31 pg (28-32) 07/24/19 05:17 MCHC 34 % (32-34) 07/24/19 05:17 RDW 14.8 % (13.2-15.2) 07/24/19 05:17 Plt Count 221 K/mm3 (140-440) 07/24/19 05:17 Lymph % (Auto) 35.3 % (13.4-35.0) H 07/24/19 05:17 [place] % (Auto) 7.3 % (0.0-7.3) 07/24/19 05:17 Eos % (Auto) 5.1 % (0.0-4.3) H 07/24/19 05:17 Baso % (Auto) 0.7 % (0.0-1.8) 07/24/19 05:17 Lymph # 1.1 K/mm3 (1.2-5.4) L 07/24/19 05:17 [place] # 0.2 K/mm3 (0.0-0.8) 07/24/19 05:17 Eos # 0.2 K/mm3 (0.0-0.4) 07/24/19 05:17 Baso # 0.0 K/mm3 (0.0-0.1) 07/24/19 05:17 Seg Neutrophils % 51.6 % (40.0-70.0) 07/24/19 05:17 Seg Neutrophils # 1.6 K/mm3 (1.8-7.7) L 07/24/19 05:17 Sodium 128 mmol/L (137-145) L 07/25/19 04:29 Potassium 4.0 mmol/L (3.6-5.0) 07/25/19 04:29 Chloride 90.6 mmol/L (98-107) L 07/25/19 04:29 Carbon Dioxide 24 mmol/L (22-30) 07/25/19 04:29 Anion Gap 17 mmol/L 07/25/19 04:29 BUN 11 mg/dL (9-20) 07/25/19 04:29 Creatinine 1.2 mg/dL (0.8-1.5) 07/25/19 04:29 Estimated GFR > 60 ml/min 07/25/19 04:29 BUN/Creatinine Ratio 9 % 07/25/19 04:29 Glucose 138 mg/dL (75-100) H 07/25/19 04:29 Osmolality 262 Mosm/kg 07/23/19 19:35 Calcium 8.5 mg/dL (8.4-10.2) 07/25/19 04:29 Total Bilirubin 0.20 mg/dL (0.1-1.2) 07/25/19 04:29 Direct Bilirubin < 0.2 mg/dL (0-0.2) 07/25/19 04:29 Indirect Bilirubin 0.0 mg/dL 07/25/19 04:29 AST 76 units/L (5-40) H 07/25/19 04:29 ALT 61 units/L (7-56) H 07/25/19 04:29 Alkaline Phosphatase 148 units/L (35-129) H 07/25/19 04:29 NT-Pro-B Natriuret Pep 13.45 pg/mL (0-900) 07/23/19 19:24 Total Protein 7.8 g/dL (6.3-8.2) 07/25/19 04:29 Albumin 4.2 g/dL (3.9-5) 07/25/19 04:29 Albumin/Globulin Ratio 1.2 % 07/25/19 04:29 TSH 94.200 mlU/mL (0.270-4.200) H 07/25/19 04:29 Free T4 0.20 ng/dL (0.76-1.46) L 07/25/19 04:29 Thyroxine (T4) 0.4 ug/dL (4.0-12.0) L 07/23/19 21:34 Urine Color Straw (Yellow) 07/23/19 20:25 Urine Turbidity Slightly-cloudy (Clear) 07/23/19 20:25 Urine pH 7.0 (5.0-7.0) 07/23/19 20:25 Ur Specific [place] 1.010 (1.003-1.030) 07/23/19 20:25 Urine Protein <15 mg/dl mg/dL (Negative) 07/23/19 20:25 Urine Glucose (UA) Neg mg/dL (Negative) 07/23/19 20:25 Urine Ketones Neg mg/dL (Negative) 07/23/19 20:25 Urine Blood Lg (Negative) 07/23/19 20:25 Urine Nitrite Neg (Negative) 07/23/19 20:25 Urine Bilirubin Neg (Negative) 07/23/19 20:25 Urine Urobilinogen < 2.0 mg/dL (<2.0) 07/23/19 20:25 Ur Leukocyte Esterase Neg (Negative) 07/23/19 20:25 Urine WBC (Auto) 1.0 /HPF (0.0-6.0) 07/23/19 20:25 Urine RBC (Auto) > 182.0 /HPF (0.0-6.0) 07/23/19 20:25 U Epithel Cells (Auto) < 1.0 /HPF (0-13.0) 07/23/19 20:25 Urine Sodium 110 mmol/L 07/23/19 20:25 Urine Chloride 106.0 mmolL (110-250) L 07/23/19 20:25 Active Medications - Current Medications Current Medications: Generic Name Dose Route Start Last Admin Trade Name [place] PRN Reason Stop Dose Admin Acetaminophen 650 mg 07/23/19 20:50 07/25/19 10:05 Tylenol PO 650 mg Q4H PRN Administration Pain MILD(1-3)/Fever >100.5/HERNANDEZ Albuterol 2.5 mg 07/23/19 22:08 Proventil IH Q4HRT PRN Shortness Of Breath Amlodipine Besylate 5 mg 07/24/19 10:00 07/25/19 09:57 Amlodipine PO 5 mg QDAY KOLBY Administration Ascorbic Acid 500 mg 07/23/19 22:00 07/25/19 09:56 Vitamin C PO 500 mg BID KOLBY Administration Aspirin 81 mg 07/24/19 10:00 07/25/19 09:58 Halfprin Ec PO 81 mg QDAY [facility] Administration Atorvastatin Calcium 80 mg 07/23/19 22:00 07/24/19 22:12 Lipitor PO 80 mg QHS KOLBY Administration Baclofen 5 mg 07/24/19 08:00 07/25/19 09:55 Lioresal PO 5 mg TID [facility] Administration Budesonide 0.5 mg 07/24/19 08:00 07/25/19 07:58 Pulmicort IH 0.5 mg Q12HRT KOLBY Administration Calcitriol 0.25 mcg 07/24/19 10:00 07/25/19 09:55 Rocaltrol PO 0.25 mcg DAILY K[facility]BY Administration Ferrous Sulfate 325 mg 07/24/19 08:00 07/25/19 09:58 Feosol PO 325 mg TID [facility]BY Administration Furosemide 20 mg 07/24/19 10:00 07/25/19 09:56 Lasix IV 20 mg QDAY [facility] Administration Gabapentin 300 mg 07/24/19 08:00 07/25/19 09:57 Gabapentin PO 300 mg TID [facility] Administration Heparin Sodium (Porcine) 5,000 unit 07/23/19 22:00 07/25/19 09:56 Heparin SUB-Q 5,000 unit Q12HR [facility]BY Administration Hydrocortisone Sodium Succinate 100 mg 07/24/19 14:00 07/25/19 06:34 Solu-Cortef IV 100 mg Q8HR KOLBY Administration Ceftriaxone Sodium 1 gm in 50 mls @ 100 mls/hr 07/23/19 22:00 07/24/19 22:23 Rocephin/Ns 1 Gm/50 Ml IV 100 mls/hr Q24H [facility] Administration Protocol Levothyroxine Sodium 200 mcg 07/25/19 06:00 07/25/19 06:34 Synthroid IV 200 mcg DAILY@0600 [facility] Administration Magnesium Oxide 400 mg 07/23/19 22:00 07/25/19 09:56 Mag-Ox PO 400 mg BID [facility] Administration Multivitamins/Minerals 1 each 07/24/19 10:00 07/25/19 09:56 Theragran-M Tab PO 1 each QDAY [facility] Administration Ondansetron HCl 4 mg 07/23/19 20:50 Zofran IV Q8H PRN Nausea And Vomiting Pantoprazole Sodium 40 mg 07/24/19 10:00 07/25/19 09:55 Protonix PO 40 mg QDAY [facility] Administration Phenobarbital 32.4 mg 07/23/19 22:00 07/25/19 09:56 Phenobarbital PO 32.4 mg BID [facility] Administration Sodium Chloride 10 ml 07/23/19 22:00 07/25/19 09:58 Sodium Chloride Flush Syringe 10 Ml IV 10 ml BID [facility] Administration Sodium Chloride 10 ml 07/23/19 20:50 Sodium Chloride Flush Syringe 10 Ml IV PRN PRN LINE FLUSH Tamsulosin HCl 0.4 mg 07/24/19 10:00 07/25/19 09:57 Flomax PO 0.4 mg QDAY [facility] Administration Thiamine HCl 100 mg 07/23/19 22:00 07/25/19 09:56 Vitamin B-1 PO 100 mg BID [facility]OL[facility] Administration
--- NOTE | 2019-07-25 16:29 | Progress Note ---
Assessment and Plan Impression: * Hyponatremia - asymptomatic; likey related to hypothyroidism --UrNa 110, UOsm and SOsm pending, TSH 200 * Peripheral edema * Hypothyroidism * Hx of Laryngeal cancer s/p trach * Microscopic hematuria Plan: * Monitor SNa * Continue IV Lasix 20mg daily * Restrict fluid intake * Management of hypothyroidism per primary team * Follow up on renal ultrasound - microscopic hematuria * Abx per primary team * Avoid potential nephrotoxins * Strict I/O Subjective Date of service: 07/25/19 Interval history: Patient has no complaints w/ exception of leg swelling - chronic Objective - Vital Signs Vital signs: Vital Signs - 12hr 07/25/19 07/25/19 07/25/19 05:35 07:42 08:00 Temperature 97.9 F Pulse Rate 74 Pulse Rate [ 84 Bilateral] Respiratory 20 16 Rate Respiratory 18 Rate [Bilateral ] Blood Pressure 100/67 O2 Sat by Pulse 98 Oximetry 07/25/19 07/25/19 07/25/19 08:54 09:56 09:57 Temperature Pulse Rate 97 H Pulse Rate [ Bilateral] Respiratory Rate Respiratory Rate [Bilateral ] Blood Pressure 137/78 137/78 O2 Sat by Pulse 98 Oximetry 07/25/19 11:44 Temperature 98.5 F Pulse Rate 95 H Pulse Rate [ Bilateral] Respiratory 18 Rate Respiratory Rate [Bilateral ] Blood Pressure 115/77 O2 Sat by Pulse 96 Oximetry - General Appearance General appearance: well-developed, well-nourished EENT: ATNC Neck: other (trach) Respiratory: Present: Clear to Ascultation Cardiology: regular, S1S2 Gastrointestinal: normal, no tenderness, no distended Musculoskeletal: other (1+ edema) Psychiatric: cooperative - Lab 07/24/19 05:17 07/25/19 04:29 Most recent lab results Calcium 8.5 mg/dL (8.4-10.2) 07/25/19 04:29 Urine Sodium 110 mmol/L 07/23/19 20:25 Medications & Allergies - Medications Allergies/Adverse Reactions: Allergies No Known Allergies Allergy (Verified 06/29/13 09:59) Home Medications: Home Medications Medication Instructions Recorded Confirmed Last Taken Type PHENobarbitaL [PHENobarbital] 32.4 mg PO BID 06/08/13 07/23/19 07/23/19 History Ferrous Sulfate [Feosol 325 MG tab] 325 mg PO TID 04/18/15 07/23/1907/23/19 History Acetaminophen [Mapap] 500 mg PO PRN PRN 06/29/19 07/23/19 Unknown History Aspirin EC [Halfprin EC] 81 mg PO QDAY 06/29/19 07/23/19 Unknown History Atorvastatin [Lipitor Tab] 80 mg PO QHS 06/29/19 07/23/19 07/22/19 History Calcitriol [Rocaltrol] 0.25 mcg PO DAILY 06/29/19 07/23/19 07/23/19 History Gabapentin [Neurontin] 300 mg PO TID 06/29/19 07/23/19 Unknown History Levothyroxine Sodium [Tirosint] 150 mcg PO DAILY 06/29/19 07/23/19 07/23/19 History Multivit-Min/FA/Lycopen/Lutein 1 each PO DAILY 06/29/19 07/23/19 07/23/19 H istory [Centrum Silver Tablet] Pantoprazole [Protonix] 40 mg PO QDAY 06/29/19 07/23/19 07/23/19 History Tamsulosin [Flomax] 0.4 mg PO QDAY 06/29/19 07/23/19 07/22/19 History Tiotropium [place] [Spiriva] 2 puff IH DAILY 06/29/19 07/23/19 07/23/19 History traMADoL [Ultram] 50 mg PO Q6HR PRN 06/29/19 07/23/19 Unknown History Ascorbic Acid [Vitamin C] 500 mg PO BID 07/23/19 07/23/19 07/23/19 History Baclofen 5 mg PO TID 07/23/19 07/23/19 07/23/19 History Magnesium Oxide 400 400 mg PO BID 07/23/19 07/23/19 07/23/19 History Thiamine HCl [Vitamin B-1] 100 mg PO BID 07/23/19 07/23/19 07/23/19 History Active Medications: Generic Name Dose Route Start Last Admin Trade Name Freq PRN Reason Stop Dose Admin Acetaminophen 650 mg 07/23/19 20:50 07/25/19 10:05 Tylenol PO 650 mg Q4H PRN Administration Pain MILD(1-3)/Fever >100.5/HERNANDEZ Albuterol 2.5 mg 07/23/19 22:08 Proventil IH Q4HRT PRN Shortness Of Breath Amlodipine Besylate 5 mg 07/24/19 10:00 07/25/19 09:57 Amlodipine PO 5 mg QDAY KOLBY Administration Ascorbic Acid 500 mg 07/23/19 22:00 07/25/19 09:56 Vitamin C PO 500 mg BID KOLBY Administration Aspirin 81 mg 07/24/19 10:00 07/25/19 09:58 Halfprin Ec PO 81 mg QDAY KOLBY Administration Atorvastatin Calcium 80 mg 07/23/19 22:00 07/24/19 22:12 Lipitor PO 80 mg QHS KOLBY Administration Baclofen 5 mg 07/24/19 08:00 07/25/19 13:20 Lioresal PO 5 mg TID KOLBY Administration Budesonide 0.5 mg 07/24/19 08:00 07/25/19 07:58 Pulmicort IH 0.5 mg Q12HRT KOLBY Administration Calcitriol 0.25 mcg 07/24/19 10:00 07/25/19 09:55 Rocaltrol PO 0.25 mcg DAILY KOLBY Administration Ferrous Sulfate 325 mg 07/24/19 08:00 07/25/19 13:20 Feosol PO 325 mg TID KOLBY Administration Furosemide 20 mg 07/24/19 10:00 07/25/19 09:56 Lasix IV 20 mg QDAY KOLBY Administration Gabapentin 300 mg 07/24/19 08:00 07/25/19 13:20 Gabapentin PO 300 mg TID KOLBY Administration Heparin Sodium (Porcine) 5,000 unit 07/23/19 22:00 07/25/19 09:56 Heparin SUB-Q 5,000 unit Q12HR KOLBY Administration Hydrocortisone Sodium Succinate 100 mg 07/24/19 14:00 07/25/19 13:20 Solu-Cortef IV 100 mg Q8HR KOLBY Administration Ceftriaxone Sodium 1 gm in 50 mls @ 100 mls/hr 07/23/19 22:00 07/24/19 22:23 Rocephin/Ns 1 Gm/50 Ml IV 100 mls/hr Q24H KOLBY Administration Protocol Levothyroxine Sodium 200 mcg 07/25/19 06:00 07/25/19 06:34 Synthroid IV 200 mcg DAILY@0600 KOLBY Administration Magnesium Oxide 400 mg 07/23/19 22:00 07/25/19 09:56 Mag-Ox PO 400 mg BID KOLBY Administration Multivitamins/Minerals 1 each 07/24/19 10:00 07/25/19 09:56 Theragran-M Tab PO 1 each QDAY KOLBY Administration Ondansetron HCl 4 mg 07/23/19 20:50 Zofran IV Q8H PRN Nausea And Vomiting Pantoprazole Sodium 40 mg 07/24/19 10:00 07/25/19 09:55 Protonix PO 40 mg QDAY KOLBY Administration Phenobarbital 32.4 mg 07/23/19 22:00 07/25/19 09:56 Phenobarbital PO 32.4 mg BID KOLBY Administration Sodium Chloride 10 ml 07/23/19 22:00 07/25/19 09:58 Sodium Chloride Flush Syringe 10 Ml IV 10 ml BID KOLBY Administration Sodium Chloride 10 ml 07/23/19 20:50 Sodium Chloride Flush Syringe 10 Ml IV PRN PRN LINE FLUSH Tamsulosin HCl 0.4 mg 07/24/19 10:00 07/25/19 09:57 Flomax PO 0.4 mg QDAY KOBLY Administration Thiamine HCl 100 mg 07/23/19 22:00 07/25/19 09:56 Vitamin B-1 PO 100 mg BID KOLBY Administration
[2019-07-25] MEDS: cefTRIAXone/NS 1 GM/50 ML 1 GM/50 ML BAG IV SCH (22:30)
[2019-07-26] MEDS: HYDROCORTISONE SOD SUCC 100 MG/2 ML VIAL IV SCH ×3 (05:43→21:54)
[2019-07-26] MEDS: LEVOTHYROXINE 100 MCG INJ IV SCH (05:43)
[2019-07-26 06:27] LABS: BUN/Creatinine Ratio 13; Blood Urea Nitrogen 14 mg/dL (9-20); Calcium 8.4 mg/dL (8.4-10.2); Hemolysis Index 2
[2019-07-26 06:37] LABS: Free T4 (Free Thyroxine) 0.44 ng/dL (0.76-1.46)
--- NOTE | 2019-07-26 08:32 | Progress Note ---
Assessment and Plan Assessment and plan: 63-year-old male patient resident of [facility] with history of laryngeal cancer status post tracheostomy seizures COPD was admitted through emergency room with hyponatremia, severe hypothyroidism/myxedema with very high TSH and low T3-T4 Patient is started on IV Synthroid, IV hydrocortisone, TSH numbers slightly improved, Patient is more alert and awake, responding appropriately. --Hyponatremia: Mild improvement, continue current management Patient has chronic hyponatremia Partly due to myxedema --Myxedema; severe hypothyroidism Thyroid function tests slightly improved wean IV steroids, change to p.o. Synthroid See beekeeper upon discharge --Urinary tract infection: SIRS Empiric antibiotics. Follow cultures ID evaluation if needed --Bilateral lower extremity edema, Continue diuretics, mild improvement --History of COPD; Nebulizers as needed --HTN: Moderate control Stable on current medications --Dyslipidemia : Continue statin --GERD:Continue Protonix --Hx Seizure; seizure precautions Continue Bacolfen and Phenobarbital --Hx Laryngeal Cancer S/P Trach, tracheostomy care --DVT prophylaxis Full CODE STATUS Monitor closely and adjust management as needed Plan of care reviewed with the patient and his nurse History Interval history: Patient seen and examined medical records reviewed Patient feels better, TSH slightly improved Free T4 trending up Patient denies any chest pain or shortness of breath Vital signs noted Hospitalist Physical - Constitutional Vitals: Temp Pulse Resp BP Pulse Ox 98.7 F 80 18 125/78 99 07/26/19 04:28 07/26/19 04:28 07/26/19 04:28 07/26/19 04:28 07/26/19 04:28 General appearance: Present: no acute distress, well-nourished, other ( tracheostomy) - EENT Eyes: Present: PERRL, EOM intact - Neck Neck: Present: supple, normal ROM - Respiratory Respiratory effort: normal Respiratory: bilateral: diminished, rhonchi, negative: rales, wheezing - Cardiovascular Rhythm: regular Heart Sounds: Present: S1 & S2 - Extremities Extremities: no ischemia, No edema - Abdominal General gastrointestinal: soft, non-tender, non-distended, normal bowel sounds - Integumentary Integumentary: Present: clear, warm - Psychiatric Psychiatric: appropriate mood/affect, cooperative - Neurologic Neurologic: moves all extremities Results - Labs CBC & Chem 7: 07/24/19 05:17 07/26/19 04:40 Labs: Laboratory Last Values WBC 3.1 K/mm3 (4.5-11.0) L 07/24/19 05:17 RBC 4.42 M/mm3 (3.65-5.03) 07/24/19 05:17 Hgb 13.5 gm/dl (11.8-15.2) 07/24/19 05:17 Hct 39.6 % (35.5-45.6) 07/24/19 05:17 MCV 90 fl (84-94) 07/24/19 05:17 MCH 31 pg (28-32) 07/24/19 05:17 MCHC 34 % (32-34) 07/24/19 05:17 RDW 14.8 % (13.2-15.2) 07/24/19 05:17 Plt Count 221 K/mm3 (140-440) 07/24/19 05:17 Lymph % (Auto) 35.3 % (13.4-35.0) H 07/24/19 05:17 Darke % (Auto) 7.3 % (0.0-7.3) 07/24/19 05:17 Eos % (Auto) 5.1 % (0.0-4.3) H 07/24/19 05:17 Baso % (Auto) 0.7 % (0.0-1.8) 07/24/19 05:17 Lymph # 1.1 K/mm3 (1.2-5.4) L 07/24/19 05:17 Darke # 0.2 K/mm3 (0.0-0.8) 07/24/19 05:17 Eos # 0.2 K/mm3 (0.0-0.4) 07/24/19 05:17 Baso # 0.0 K/mm3 (0.0-0.1) 07/24/19 05:17 Seg Neutrophils % 51.6 % (40.0-70.0) 07/24/19 05:17 Seg Neutrophils # 1.6 K/mm3 (1.8-7.7) L 07/24/19 05:17 Sodium 129 mmol/L (137-145) L 07/26/19 04:40 Potassium 3.7 mmol/L (3.6-5.0) 07/26/19 04:40 Chloride 89.2 mmol/L (98-107) L 07/26/19 04:40 Carbon Dioxide 22 mmol/L (22-30) 07/26/19 04:40 Anion Gap 22 mmol/L 07/26/19 04:40 BUN 14 mg/dL (9-20) 07/26/19 04:40 Creatinine 1.1 mg/dL (0.8-1.5) 07/26/19 04:40 Estimated GFR > 60 ml/min 07/26/19 04:40 BUN/Creatinine Ratio 13 % 07/26/19 04:40 Glucose 125 mg/dL (75-100) H 07/26/19 04:40 Osmolality 262 Mosm/kg 07/23/19 19:35 Calcium 8.4 mg/dL (8.4-10.2) 07/26/19 04:40 Total Bilirubin 0.20 mg/dL (0.1-1.2) 07/25/19 04:29 Direct Bilirubin < 0.2 mg/dL (0-0.2) 07/25/19 04:29 Indirect Bilirubin 0.0 mg/dL 07/25/19 04:29 AST 76 units/L (5-40) H 07/25/19 04:29 ALT 61 units/L (7-56) H 07/25/19 04:29 Alkaline Phosphatase 148 units/L (35-129) H 07/25/19 04:29 NT-Pro-B Natriuret Pep 13.45 pg/mL (0-900) 07/23/19 19:24 Total Protein 7.8 g/dL (6.3-8.2) 07/25/19 04:29 Albumin 4.2 g/dL (3.9-5) 07/25/19 04:29 Albumin/Globulin Ratio 1.2 % 07/25/19 04:29 TSH 99.700 mlU/mL (0.270-4.200) H 07/26/19 04:40 Free T4 0.44 ng/dL (0.76-1.46) L 07/26/19 04:40 Thyroxine (T4) 0.4 ug/dL (4.0-12.0) L 07/23/19 21:34 Urine Color Straw (Yellow) 07/23/19 20:25 Urine Turbidity Slightly-cloudy (Clear) 07/23/19 20:25 Urine pH 7.0 (5.0-7.0) 07/23/19 20:25 Ur Specific [place] 1.010 (1.003-1.030) 07/23/19 20:25 Urine Protein <15 mg/dl mg/dL (Negative) 07/23/19 20:25 Urine Glucose (UA) Neg mg/dL (Negative) 07/23/19 20:25 Urine Ketones Neg mg/dL (Negative) 07/23/19 20:25 Urine Blood Lg (Negative) 07/23/19 20:25 Urine Nitrite Neg (Negative) 07/23/19 20:25 Urine Bilirubin Neg (Negative) 07/23/19 20:25 Urine Urobilinogen < 2.0 mg/dL (<2.0) 07/23/19 20:25 Ur Leukocyte Esterase Neg (Negative) 07/23/19 20:25 Urine WBC (Auto) 1.0 /HPF (0.0-6.0) 07/23/19 20:25 Urine RBC (Auto) > 182.0 /HPF (0.0-6.0) 07/23/19 20:25 U Epithel Cells (Auto) < 1.0 /HPF (0-13.0) 07/23/19 20:25 Urine Sodium 110 mmol/L 07/23/19 20:25 Urine Chloride 106.0 mmolL (110-250) L 07/23/19 20:25 Active Medications - Current Medications Current Medications: Generic Name Dose Route Start Last Admin Trade Name Freq PRN Reason Stop Dose Admin Acetaminophen 650 mg 07/23/19 20:50 07/25/19 10:05 Tylenol PO 650 mg Q4H PRN Administration Pain MILD(1-3)/Fever >100.5/HERNANDEZ Albuterol 2.5 mg 07/23/19 22:08 Proventil IH Q4HRT PRN Shortness Of Breath Amlodipine Besylate 5 mg 07/24/19 10:00 07/25/19 09:57 Amlodipine PO 5 mg QDAY KOLBY Administration Ascorbic Acid 500 mg 07/23/19 22:00 07/25/19 22:25 Vitamin C PO 500 mg BID KOLBY Administration Aspirin 81 mg 07/24/19 10:00 07/25/19 09:58 Halfprin Ec PO 81 mg QDAY KOLBY Administration Atorvastatin Calcium 80 mg 07/23/19 22:00 07/25/19 22:26 Lipitor PO 80 mg QHS KOLBY Administration Baclofen 5 mg 07/24/19 08:00 07/25/19 22:25 Lioresal PO 5 mg TID KOLBY Administration Budesonide 0.5 mg 07/24/19 08:00 07/25/19 20:17 Pulmicort IH 0.5 mg Q12HRT KOLBY Administration Calcitriol 0.25 mcg 07/24/19 10:00 07/25/19 09:55 Rocaltrol PO 0.25 mcg DAILY KOLBY Administration Ferrous Sulfate 325 mg 07/24/19 08:00 07/25/19 22:30 Feosol PO 325 mg TID KOLBY Administration Furosemide 20 mg 07/24/19 10:00 07/25/19 09:56 Lasix IV 20 mg QDAY KOLBY Administration Gabapentin 300 mg 07/24/19 08:00 07/25/19 22:25 Gabapentin PO 300 mg TID KOLBY Administration Heparin Sodium (Porcine) 5,000 unit 07/23/19 22:00 07/25/19 22:26 Heparin SUB-Q 5,000 unit Q12HR KOLBY Administration Hydrocortisone Sodium Succinate 100 mg 07/24/19 14:00 07/26/19 05:43 Solu-Cortef IV 100 mg Q8HR KOLBY Administration Ceftriaxone Sodium 1 gm in 50 mls @ 100 mls/hr 07/23/19 22:00 07/25/19 22:30 Rocephin/Ns 1 Gm/50 Ml IV 100 mls/hr Q24H KOLBY Administration Protocol Levothyroxine Sodium 200 mcg 07/25/19 06:00 07/26/19 05:43 Synthroid IV 200 mcg DAILY@0600 KOLBY Administration Magnesium Oxide 400 mg 07/23/19 22:00 07/25/19 22:27 Mag-Ox PO 400 mg BID KOLBY Administration Multivitamins/Minerals 1 each 07/24/19 10:00 07/25/19 09:56 Theragran-M Tab PO 1 each QDAY KOLBY Administration Ondansetron HCl 4 mg 07/23/19 20:50 Zofran IV Q8H PRN Nausea And Vomiting Pantoprazole Sodium 40 mg 07/24/19 10:00 07/25/19 09:55 Protonix PO 40 mg QDAY KOLBY Administration Phenobarbital 32.4 mg 07/23/19 22:00 07/25/19 22:27 Phenobarbital PO 32.4 mg BID KOLBY Administration Sodium Chloride 10 ml 07/23/19 22:00 07/25/19 22:25 Sodium Chloride Flush Syringe 10 Ml IV 10 ml BID KOLBY Administration Sodium Chloride 10 ml 07/23/19 20:50 Sodium Chloride Flush Syringe 10 Ml IV PRN PRN LINE FLUSH Tamsulosin HCl 0.4 mg 07/24/19 10:00 07/25/19 09:57 Flomax PO 0.4 mg QDAY KOLBY Administration Thiamine HCl 100 mg 07/23/19 22:00 07/25/19 22:25 Vitamin B-1 PO 100 mg BID KOLBY Administration
[2019-07-26] MEDS: BUDESONIDE 0.5 MG/2 ML NEBU IH SCH ×2 (08:40→19:47)
[2019-07-26] MEDS: TAMSULOSIN 0.4 MG CAP PO SCH (09:49)
[2019-07-26] MEDS: PANTOPRAZOLE 40 MG TAB PO SCH (09:49)
[2019-07-26] MEDS: ASCORBIC ACID 500 MG TAB PO SCH ×2 (09:49→21:54)
[2019-07-26] MEDS: MAGNESIUM OXIDE 400 MG TAB PO SCH ×2 (09:50→21:53)
[2019-07-26] MEDS: BACLOFEN 10 MG TAB PO SCH ×3 (09:50→21:53)
[2019-07-26] MEDS: FERROUS SULFATE 325 MG TAB PO SCH ×3 (09:50→21:53)
[2019-07-26] MEDS: CALCITRIOL 0.25 MCG CAP PO SCH (09:50)
[2019-07-26] MEDS: amLODIPine 5 MG TAB PO SCH (09:50)
[2019-07-26] MEDS: ASPIRIN EC 81 MG TAB PO SCH (09:50)
[2019-07-26] MEDS: FUROSEMIDE 40 MG/4 ML INJ IV SCH (09:50)
[2019-07-26] MEDS: GABAPENTIN 500 MG/10 ML ORAL LIQD PO SCH ×3 (09:51→23:17)
[2019-07-26] MEDS: MULTIVITAMINS,THER W-MINERALS TAB PO SCH (09:51)
[2019-07-26] MEDS: PHENobarbital 32.4 MG TAB PO SCH ×2 (09:52→21:53)
[2019-07-26] MEDS: THIAMINE 100 MG TAB PO SCH ×2 (09:52→21:53)
[2019-07-26] MEDS: HEPARIN 5,000 UNIT/1 ML VIAL SUB-Q SCH ×2 (09:52→21:54)
[2019-07-26] MEDS: ACETAMINOPHEN 325 MG TAB PO PRN (10:04)
--- NOTE | 2019-07-26 12:16 | Ultrasound Report ---
ULTRASOUND RENAL INDICATION / CLINICAL INFORMATION: Microscopic hematuria. COMPARISON: CT abdomen pelvis without contrast FINDINGS: RIGHT KIDNEY: Length = 11.3 cm. [normal > 9 cm] - Parenchymal Thickness = 1.1 cm. [normal > 1.5 cm] - Echogenicity: Normal. - Hydronephrosis: None. - Cyst or mass: No significant abnormality. - Stones: A few scattered punctate renal calyceal stones are suspected. LEFT KIDNEY: Length = 10.6 cm. [normal > 9 cm] - Parenchymal Thickness = 1.5 cm. [normal > 1.5 cm] - Echogenicity: Normal. - Hydronephrosis: None. - Cyst or mass: No significant abnormality. - Stones: A few scattered punctate renal calyceal stones are suspected. URINARY BLADDER: No significant abnormality. FREE FLUID: None. ADDITIONAL FINDINGS: None. IMPRESSION: A few scattered punctate calyceal stones are identified in both kidneys. In retrospect, these findin gs were suggested on the CT abdomen pelvis dated 03/23/2019. Signer Name: Cirilo Major Jr, MD Signed: 07/26/2019 12:11 PM Workstation Name: [id number]
[2019-07-26] MEDS: traMADol 50 MG TAB PO PRN ×2 (15:18→23:22)
--- NOTE | 2019-07-26 16:58 | Progress Note ---
Assessment and Plan - Patient Problems (1) Hyponatremia Current Visit: Yes Status: Acute Plan to address problem: Hyponatremia Elevated urine sodium Overall volume status appears euvolemic Given severe hypothyroidism high urine sodium hyponatremia may be a result We'll add sodium chloride tablets Continue treatment of underlying hypothyroidism (2) Hypothyroidism Current Visit: Yes Status: Acute Plan to address problem: Severe hypothyroidism markedly elevated TSH Continue Synthroid and endocrinology following (3) Hypertension Current Visit: No Status: Chronic Plan to address problem: Hypertension Continue medications (4) Leg edema Current Visit: Yes Status: Acute Plan to address problem: Leg edema much improved low threshold to stop Lasix (5) Acute kidney injury Current Visit: Yes Status: Acute Plan to address problem: Acute kidney injury mild Urinalysis reviewed We'll discontinue diuretics avoid nephrotoxic medications Strict input and output Subjective Interval history: 63-year-old gentleman With severe hypothyroidism hyponatremia acute kidney injury Patient seen today as well has minimal lower extremity edema. Objective - Vital Signs Vital signs: Vital Signs - 12hr 07/26/19 07/26/19 07/26/19 08:40 09:01 14:06 Pulse Rate [ 87 Bilateral] Respiratory 20 Rate [Bilateral ] O2 Sat by Pulse 99 Oximetry O2 Sat by Pulse 97 Oximetry [ Assessment] - General Appearance General appearance: well-developed, well-nourished EENT: ATNC, PERRL Neck: no JVD Respiratory: Present: Clear to Ascultation Cardiology: regular, S1S2 Gastrointestinal: normal Integumentary: no rash Neurologic: alert and oriented x3, CN 3-12 intact Psychiatric: mood/affect appropriate - Lab 07/24/19 05:17 07/26/19 04:40 Most recent lab results Calcium 8.4 mg/dL (8.4-10.2) 07/26/19 04:40 Urine Sodium 110 mmol/L 07/23/19 20:25 - Imaging Chest x-ray: image reviewed (I reviewed chest x-ray without edema) Medications & Allergies - Medications Allergies/Adverse Reactions: Allergies No Known Allergies Allergy (Verified 06/29/13 09:59) Home Medications: Home Medications Medication Instructions Recorded Confirmed Last Taken Type PHENobarbitaL [PHENobarbital] 32.4 mg PO BID 06/08/13 07/23/19 07/23/19 History Ferrous Sulfate [Feosol 325 MG tab] 325 mg PO TID 04/18/15 07/23/19 07/23/19 History Acetaminophen [Mapap] 500 mg PO PRN PRN 06/29/19 07/23/19 Unknown History Aspirin EC [Halfprin EC] 81 mg PO QDAY 06/29/19 07/23/19 Unknown History Atorvastatin [Lipitor Tab] 80 mg PO QHS 06/29/19 07/23/19 07/22/19 History Calcitriol [Rocaltrol] 0.25 mcg PO DAILY 06/29/19 07/23/19 07/23/19 History Gabapentin [Neurontin] 300 mg PO TID 06/29/19 07/23/19 Unknown History Levothyroxine Sodium [Tirosint] 150 mcg PO DAILY 06/29/19 07/23/19 07/23/19 History Multivit-Min/FA/Lycopen/Lutein 1 each PO DAILY 06/29/19 07/23/19 07/23/19 History [Centrum Silver Tablet] Pantoprazole [Protonix] 40 mg PO QDAY 06/29/19 07/23/19 07/23/19 History Tamsulosin [Flomax] 0.4 mg PO QDAY 06/29/19 07/23/19 07/22/19 History Tiotropium [place] [Spiriva] 2 puff IH DAILY 06/29/19 07/23/19 07/23/19 History traMADoL [Ultram] 50 mg PO Q6HR PRN 06/29/19 07/23/19 Unknown History Ascorbic Acid [Vitamin C] 500 mg PO BID 07/23/19 07/23/19 07/23/19 History Baclofen 5 mg PO TID 07/23/19 07/23/19 07/23/19 History Magnesium Oxide 400 400 mg PO BID 07/23/19 07/23/19 07/23/19 History Thiamine HCl [Vitamin B-1] 100 mg PO BID 07/23/19 07/23/19 07/23/19 History Active Medications: Generic Name Dose Route Start Last Admin Trade Name Freq PRN Reason Stop Dose Admin Acetaminophen 650 mg 07/23/19 20:50 07/26/19 10:04 Tylenol PO 650 mg Q4H PRN Administration Pain MILD(1-3)/Fever >100.5/HERNANDEZ Albuterol 2.5 mg 07/23/19 22:08 07/26/19 08:40 Proventil IH 2.5 mg Q4HRT PRN Administration Shortness Of Breath Amlodipine Besylate 5 mg 07/24/19 10:00 07/26/19 09:50 Amlodipine PO 5 mg QDAY KOLBY Administration Ascorbic Acid 500 mg 07/23/19 22:00 07/26/19 09:49 Vitamin C PO 500 mg BID KOLBY Administration Aspirin 81 mg 07/24/19 10:00 07/26/19 09:50 Halfprin Ec PO 81 mg QDAY KOLBY Administration Atorvastatin Calcium 80 mg 07/23/19 22:00 07/25/19 22:26 Lipitor PO 80 mg QHS KOLBY Administration Baclofen 5 mg 07/24/19 08:00 07/26/19 14:30 Lioresal PO 5 mg TID KOLBY Administration Budesonide 0.5 mg 07/24/19 08:00 07/26/19 08:40 Pulmicort IH 0.5 mg Q12HRT KOLBY Administration Calcitriol 0.25 mcg 07/24/19 10:00 07/26/19 09:50 Rocaltrol PO 0.25 mcg DAILY KOLBY Administration Ferrous Sulfate 325 mg 07/24/19 08:00 07/26/19 14:30 Feosol PO 325 mg TID KOLBY Administration Furosemide 20 mg 07/24/19 10:00 07/26/19 09:50 Lasix IV 20 mg QDAY KOLBY Administration Gabapentin 300 mg 07/24/19 08:00 07/26/19 14:30 Gabapentin PO 300 mg TID KOLBY Administration Heparin Sodium (Porcine) 5,000 unit 07/23/19 22:00 07/26/19 09:52 Heparin SUB-Q 5,000 unit Q12HR KOLBY Administration Hydrocortisone Sodium Succinate 100 mg 07/24/19 14:00 07/26/19 14:30 Solu-Cortef IV 100 mg Q8HR KOLBY Administration Ceftriaxone Sodium 1 gm in 50 mls @ 100 mls/hr 07/23/19 22:00 07/25/19 22:30 Rocephin/Ns 1 Gm/50 Ml IV 100 mls/hr Q24H KOLBY Administration Protocol Levothyroxine Sodium 200 mcg 07/25/19 06:00 07/26/19 05:43 Synthroid IV 200 mcg DAILY@0600 KOLBY Administration Magnesium Oxide 400 mg 07/23/19 22:00 07/26/19 09:50 Mag-Ox PO 400 mg BID KOLBY Administration Multivitamins/Minerals 1 each 07/24/19 10:00 07/26/19 09:51 Theragran-M Tab PO 1 each QDAY KOLBY Administration Ondansetron HCl 4 mg 07/23/19 20:50 Zofran IV Q8H PRN Nausea And Vomiting Pantoprazole Sodium 40 mg 07/24/19 10:00 07/26/19 09:49 Protonix PO 40 mg QDAY KOLBY Administration Phenobarbital 32.4 mg 07/23/19 22:00 07/26/19 09:52 Phenobarbital PO 32.4 mg BID KOLBY Administration Sodium Chloride 10 ml 07/23/19 22:00 07/26/19 09:52 Sodium Chloride Flush Syringe 10 Ml IV 10 ml BID KOLBY Administration Sodium Chloride 10 ml 07/23/19 20:50 Sodium Chloride Flush Syringe 10 Ml IV PRN PRN LINE FLUSH Tamsulosin HCl 0.4 mg 07/24/19 10:00 07/26/19 09:49 Flomax PO 0.4 mg QDAY KOLBY Administration Thiamine HCl 100 mg 07/23/19 22:00 07/26/19 09:52 Vitamin B-1 PO 100 mg BID KOLBY Administration Tramadol HCl 50 mg 07/26/19 14:14 07/26/19 15:18 Ultram PO 50 mg Q6H PRN Administration Pain, Moderate (4-6)
[2019-07-26] MEDS: cefTRIAXone/NS 1 GM/50 ML 1 GM/50 ML BAG IV SCH (21:52)
[2019-07-26] MEDS: SODIUM CHLORIDE 1 GM TAB PO SCH (23:17)
[2019-07-27] MEDS: ACETAMINOPHEN 325 MG TAB PO PRN (06:32)
[2019-07-27] MEDS: LEVOTHYROXINE 100 MCG INJ IV SCH (06:33)
[2019-07-27] MEDS: HYDROCORTISONE SOD SUCC 100 MG/2 ML VIAL IV SCH (06:33)
[2019-07-27 08:11] LABS: BUN/Creatinine Ratio 18; Blood Urea Nitrogen 16 mg/dL (9-20); Calcium 8.1 mg/dL (8.4-10.2); Hemolysis Index 4
[2019-07-27] MEDS: BUDESONIDE 0.5 MG/2 ML NEBU IH SCH ×2 (08:51→20:02)
[2019-07-27] MEDS: PHENobarbital 32.4 MG TAB PO SCH ×2 (10:44→21:03)
[2019-07-27] MEDS: FERROUS SULFATE 325 MG TAB PO SCH ×3 (10:44→21:03)
[2019-07-27] MEDS: THIAMINE 100 MG TAB PO SCH ×2 (10:44→22:33)
[2019-07-27] MEDS: ASCORBIC ACID 500 MG TAB PO SCH ×2 (10:44→21:03)
[2019-07-27] MEDS: MAGNESIUM OXIDE 400 MG TAB PO SCH ×2 (10:44→21:02)
[2019-07-27] MEDS: MULTIVITAMINS,THER W-MINERALS TAB PO SCH (10:44)
[2019-07-27] MEDS: TAMSULOSIN 0.4 MG CAP PO SCH (10:45)
[2019-07-27] MEDS: ASPIRIN EC 81 MG TAB PO SCH (10:45)
[2019-07-27] MEDS: PANTOPRAZOLE 40 MG TAB PO SCH (10:45)
[2019-07-27] MEDS: amLODIPine 5 MG TAB PO SCH (10:45)
[2019-07-27] MEDS: BACLOFEN 10 MG TAB PO SCH ×3 (10:45→21:02)
[2019-07-27] MEDS: GABAPENTIN 500 MG/10 ML ORAL LIQD PO SCH ×3 (10:46→21:08)
[2019-07-27] MEDS: CALCITRIOL 0.25 MCG CAP PO SCH (10:46)
[2019-07-27] MEDS: SODIUM CHLORIDE 1 GM TAB PO SCH ×2 (10:47→22:34)
[2019-07-27] MEDS: FUROSEMIDE 40 MG/4 ML INJ IV SCH (10:47)
[2019-07-27] MEDS: HEPARIN 5,000 UNIT/1 ML VIAL SUB-Q SCH ×2 (10:47→21:08)
[2019-07-27] MEDS: traMADol 50 MG TAB PO PRN ×2 (11:00→21:17)
--- NOTE | 2019-07-27 12:32 | Progress Note ---
Assessment and Plan Assessment and plan: --Urinary tract infection: SIRS Empiric antibiotics. neg cultures DC rocephen after todays dose --Constipation; stool softeners Supportive care --Myxedema; severe hypothyroidism Thyroid function tests slightly improved wean IV steroids, change to p.o. Synthroid See lump receiver upon discharge --Hyponatremia: Mild improvement, continue current management Patient has chronic hyponatremia Partly due to myxedema --Bilateral lower extremity edema, Continue diuretics, mild improvement --History of COPD; Nebulizers as needed --HTN: Moderate control Stable on current medications --Dyslipidemia : Continue statin --GERD:Continue Protonix --Hx Seizure; seizure precautions Continue Bacolfen and Phenobarbital --Hx Laryngeal Cancer S/P Trach, tracheostomy care --DVT prophylaxis Full CODE STATUS Monitor closely and adjust management as needed Plan of care reviewed with the patient and his nurse History Interval history: Patient seen and examined medical records reviewed Patient feels slightly better Sodium levels mild improvement Thyroid function tests still high trending down Vital signs reviewed Hospitalist Physical - Constitutional Vitals: Temp Pulse Resp BP Pulse Ox 97.9 F 91 H 20 120/77 98 07/27/19 06:00 07/27/19 08:00 07/27/19 11:00 07/27/19 06:00 07/27/19 09:30 General appearance: Present: no acute distress, well-nourished, other ( tracheostomy) - EENT Eyes: Present: PERRL, EOM intact - Neck Neck: Present: supple, normal ROM - Respiratory Respiratory effort: normal Respiratory: bilateral: diminished, rhonchi, negative: rales, wheezing - Cardiovascular Rhythm: regular Heart Sounds: Present: S1 & S2 - Extremities Extremities: no ischemia, No edema - Abdominal General gastrointestinal: soft, non-tender, non-distended, normal bowel sounds - Integumentary Integumentary: Present: clear, warm - Psychiatric Psychiatric: appropriate mood/affect, cooperative - Neurologic Neurologic: moves all extremities Results - Labs CBC & Chem 7: 07/24/19 05:17 07/27/19 07:10 Labs: Laboratory Last Values WBC 3.1 K/mm3 (4.5-11.0) L 07/24/19 05:17 RBC 4.42 M/mm3 (3.65-5.03) 07/24/19 05:17 Hgb 13.5 gm/dl (11.8-15.2) 07/24/19 05:17 Hct 39.6 % (35.5-45.6) 07/24/19 05:17 MCV 90 fl (84-94) 07/24/19 05:17 MCH 31 pg (28-32) 07/24/19 05:17 MCHC 34 % (32-34) 07/24/19 05:17 RDW 14.8 % (13.2-15.2) 07/24/19 05:17 Plt Count 221 K/mm3 (140-440) 07/24/19 05:17 Lymph % (Auto) 35.3 % (13.4-35.0) H 07/24/19 05:17 Hunt % (Auto) 7.3 % (0.0-7.3) 07/24/19 05:17 Eos % (Auto) 5.1 % (0.0-4.3) H 07/24/19 05:17 Baso % (Auto) 0.7 % (0.0-1.8) 07/24/19 05:17 Lymph # 1.1 K/mm3 (1.2-5.4) L 07/24/19 05:17 Hunt # 0.2 K/mm3 (0.0-0.8) 07/24/19 05:17 Eos # 0.2 K/mm3 (0.0-0.4) 07/24/19 05:17 Baso # 0.0 K/mm3 (0.0-0.1) 07/24/19 05:17 Seg Neutrophils % 51.6 % (40.0-70.0) 07/24/19 05:17 Seg Neutrophils # 1.6 K/mm3 (1.8-7.7) L 07/24/19 05:17 Sodium 136 mmol/L (137-145) L D 07/27/19 07:10 Potassium 3.5 mmol/L (3.6-5.0) L 07/27/19 07:10 Chloride 93.7 mmol/L (98-107) L 07/27/19 07:10 Carbon Dioxide 24 mmol/L (22-30) 07/27/19 07:10 Anion Gap 22 mmol/L 07/27/19 07:10 BUN 16 mg/dL (9-20) 07/27/19 07:10 Creatinine 0.9 mg/dL (0.8-1.5) 07/27/19 07:10 Estimated GFR > 60 ml/min 07/27/19 07:10 BUN/Creatinine Ratio 18 % 07/27/19 07:10 Glucose 114 mg/dL (75-100) H 07/27/19 07:10 Osmolality 262 Mosm/kg 07/23/19 19:35 Calcium 8.1 mg/dL (8.4-10.2) L 07/27/19 07:10 Total Bilirubin 0.20 mg/dL (0.1-1.2) 07/25/19 04:29 Direct Bilirubin < 0.2 mg/dL (0-0.2) 07/25/19 04:29 Indirect Bilirubin 0.0 mg/dL 07/25/19 04:29 AST 76 units/L (5-40) H 07/25/19 04:29 ALT 61 units/L (7-56) H 07/25/19 04:29 Alkaline Phosphatase 148 units/L (35-129) H 07/25/19 04:29 NT-Pro-B Natriuret Pep 13.45 pg/mL (0-900) 07/23/19 19:24 Total Protein 7.8 g/dL (6.3-8.2) 07/25/19 04:29 Albumin 4.2 g/dL (3.9-5) 07/25/19 04:29 Albumin/Globulin Ratio 1.2 % 07/25/19 04:29 TSH 99.700 mlU/mL (0.270-4.200) H 07/26/19 04:40 Free T4 0.44 ng/dL (0.76-1.46) L 07/26/19 04:40 Thyroxine (T4) 0.4 ug/dL (4.0-12.0) L 07/23/19 21:34 Urine Color Straw (Yellow) 07/23/19 20:25 Urine Turbidity Slightly-cloudy (Clear) 07/23/19 20:25 Urine pH 7.0 (5.0-7.0) 07/23/19 20:25 Ur Specific [place] 1.010 (1.003-1.030) 07/23/19 20:25 Urine Protein <15 mg/dl mg/dL (Negative) 07/23/19 20:25 Urine Glucose (UA) Neg mg/dL (Negative) 07/23/19 20:25 Urine Ketones Neg mg/dL (Negative) 07/23/19 20:25 Urine Blood Lg (Negative) 07/23/19 20:25 Urine Nitrite Neg (Negative) 07/23/19 20:25 Urine Bilirubin Neg (Negative) 07/23/19 20:25 Urine Urobilinogen < 2.0 mg/dL (<2.0) 07/23/19 20:25 Ur Leukocyte Esterase Neg (Negative) 07/23/19 20:25 Urine WBC (Auto) 1.0 /HPF (0.0-6.0) 07/23/19 20:25 Urine RBC (Auto) > 182.0 /HPF (0.0-6.0) 07/23/19 20:25 U Epithel Cells (Auto) < 1.0 /HPF (0-13.0) 07/23/19 20:25 Urine Sodium 110 mmol/L 07/23/19 20:25 Urine Chloride 106.0 mmolL (110-250) L 07/23/19 20:25 Active Medications - Current Medications Current Medications: Generic Name Dose Route Start Last Admin Trade Name Freq PRN Reason Stop Dose Admin Acetaminophen 650 mg 07/23/19 20:50 07/27/19 06:32 Tylenol PO 650 mg Q4H PRN Administration Pain MILD(1-3)/Fever >100.5/HERNANDEZ Albuterol 2.5 mg 07/23/19 22:08 07/26/19 08:40 Proventil IH 2.5 mg Q4HRT PRN Administration Shortness Of Breath Amlodipine Besylate 5 mg 07/24/19 10:00 07/27/19 10:45 Amlodipine PO 5 mg QDAY KOLBY Administration Ascorbic Acid 500 mg 07/23/19 22:00 07/27/19 10:44 Vitamin C PO 500 mg BID KOLBY Administration Aspirin 81 mg 07/24/19 10:00 07/27/19 10:45 Halfprin Ec PO 81 mg QDAY KOLBY Administration Atorvastatin Calcium 80 mg 07/23/19 22:00 07/26/19 21:53 Lipitor PO 80 mg QHS KOLBY Administration Baclofen 5 mg 07/24/19 08:00 07/27/19 10:45 Lioresal PO 5 mg TID KOLBY Administration Budesonide 0.5 mg 07/24/19 08:00 07/27/19 08:51 Pulmicort IH 0.5 mg Q12HRT KOLBY Administration Calcitriol 0.25 mcg 07/24/19 10:00 07/27/19 10:46 Rocaltrol PO 0.25 mcg DAILY KOLBY Administration Ferrous Sulfate 325 mg 07/24/19 08:00 07/27/19 10:44 Feosol PO 325 mg TID KOLBY Administration Furosemide 20 mg 07/24/19 10:00 07/27/19 10:47 Lasix IV 20 mg QDAY KOLBY Administration Gabapentin 300 mg 07/24/19 08:00 07/27/19 10:46 Gabapentin PO 300 mg TID KOLBY Administration Heparin Sodium (Porcine) 5,000 unit 07/23/19 22:00 07/27/19 10:47 Heparin SUB-Q 5,000 unit Q12HR KOLBY Administration Hydrocortisone Sodium Succinate 100 mg 07/27/19 13:00 Solu-Cortef IV Q12H KOLBY Ceftriaxone Sodium 1 gm in 50 mls @ 100 mls/hr 07/23/19 22:00 07/26/19 21:52 Rocephin/Ns 1 Gm/50 Ml IV 07/27/19 22:29 100 mls/hr Q24H KOLBY Administration Protocol Levothyroxine Sodium 200 mcg 07/25/19 06:00 07/27/19 06:33 Synthroid IV 200 mcg DAILY@0600 KOLBY Administration Magnesium Oxide 400 mg 07/23/19 22:00 07/27/19 10:44 Mag-Ox PO 400 mg BID KOLBY Administration Multivitamins/Minerals 1 each 07/24/19 10:00 07/27/19 10:44 Theragran-M Tab PO 1 each QDAY KOLBY Administration Ondansetron HCl 4 mg 07/23/19 20:50 Zofran IV Q8H PRN Nausea And Vomiting Pantoprazole Sodium 40 mg 07/24/19 10:00 07/27/19 10:45 Protonix PO 40 mg QDAY KOLBY Administration Phenobarbital 32.4 mg 07/23/19 22:00 07/27/19 10:44 Phenobarbital PO 32.4 mg BID KOLBY Administration Sodium Chloride 10 ml 07/23/19 22:00 07/26/19 21:54 Sodium Chloride Flush Syringe 10 Ml IV 10 ml BID KOLBY Administration Sodium Chloride 10 ml 07/23/19 20:50 07/27/19 06:33 Sodium Chloride Flush Syringe 10 Ml IV 10 ml PRN PRN Administration LINE FLUSH Sodium Chloride 2 gm 07/27/19 22:00 Sodium Chloride PO BID [facility] Tamsulosin HCl 0.4 mg 07/24/19 10:00 07/27/19 10:45 Flomax PO 0.4 mg QDAY KOLBY Administration Thiamine HCl 100 mg 07/23/19 22:00 07/27/19 10:44 Vitamin B-1 PO 100 mg BID KOLBY Administration Tramadol HCl 50 mg 07/26/19 14:14 07/27/19 11:00 Ultram PO 50 mg Q6H PRN Administration Pain, Moderate (4-6)
[2019-07-27] MEDS ORDERED: HYDROCORTISONE SOD SUCC 100 MG/2 ML VIAL IV SCH (13:00)
[2019-07-27 13:58] LABS: Free T4 (Free Thyroxine) 1.37 ng/dL (0.76-1.46)
--- NOTE | 2019-07-27 16:08 | Progress Note ---
Assessment and Plan - Patient Problems (1) Hyponatremia Current Visit: Yes Status: Acute Plan to address problem: Hyponatremia; much improved. Elevated urine sodium Overall volume status appears euvolemic Given severe hypothyroidism high urine sodium hyponatremia may be a result continue sodium chloride tablets Continue treatment of underlying hypothyroidism (2) Hypothyroidism Current Visit: Yes Status: Acute Plan to address problem: Severe hypothyroidism markedly elevated TSH Continue Synthroid and endocrinology following (3) Hypertension Current Visit: No Status: Chronic Plan to address problem: Hypertension Continue medications (4) Leg edema Current Visit: Yes Status: Acute Plan to address problem: Leg edema much improved low threshold to stop Lasix (5) Acute kidney injury Current Visit: Yes Status: Acute Plan to address problem: Acute kidney injury mild:improving. Urinalysis reviewed avoid nephrotoxic medications Strict input and output Subjective Interval history: 63-year-old gentleman With severe hypothyroidism, hyponatremia and acute kidney injury Patient seen today as well has minimal lower extremity edema. sodium level improving on synthroid. Objective - Vital Signs Vital signs: Vital Signs - 12hr 07/27/19 07/27/19 07/27/19 06:00 08:00 08:55 Temperature 97.9 F Pulse Rate 83 Pulse Rate [ 91 H Bilateral] Respiratory 18 Rate Respiratory 16 Rate [Bilateral ] Blood Pressure 120/77 O2 Sat by Pulse 96 100 Oximetry O2 Sat by Pulse Oximetry [ Assessment] 07/27/19 07/27/19 07/27/19 09:30 11:00 13:48 Temperature 98.5 F Pulse Rate 95 H Pulse Rate [ Bilateral] Respiratory 20 16 Rate Respiratory Rate [Bilateral ] Blood Pressure 148/80 O2 Sat by Pulse 100 Oximetry O2 Sat by Pulse 98 Oximetry [ Assessment] - General Appearance General appearance: well-developed, well-nourished EENT: ATNC, PERRL Neck: no JVD Respiratory: Present: Clear to Ascultation Cardiology: regular, S1S2 Gastrointestinal: normal, normoactive bowel sounds Integumentary: no rash Neurologic: alert and oriented x3, CN 3-12 intact Psychiatric: mood/affect appropriate - Lab 07/24/19 05:17 07/27/19 07:10 Most recent lab results Calcium 8.1 mg/dL (8.4-10.2) L 07/27/19 07:10 Urine Sodium 110 mmol/L 07/23/19 20:25 - Imaging Chest x-ray: image reviewed (cxr reviewed with no edema ) Medications & Allergies - Medications Allergies/Adverse Reactions: Allergies No Known Allergies Allergy (Verified 06/29/13 09:59) Home Medications: Home Medications Medication Instructions Recorded Confirmed Last Taken Type PHENobarbitaL [PHENobarbital] 32.4 mg PO BID 06/08/13 07/23/19 07/23/19 History Ferrous Sulfate [Feosol 325 MG tab] 325 mg PO TID 04/18/15 07/23/19 07/23/19 History Acetaminophen [Mapap] 500 mg PO PRN PRN 06/29/19 07/23/19 Unknown History Aspirin EC [Halfprin EC] 81 mg PO QDAY 06/29/19 07/23/19 Unknown History Atorvastatin [Lipitor Tab] 80 mg PO QHS 06/29/19 07/23/19 07/22/19 History Calcitriol [Rocaltrol] 0.25 mcg PO DAILY 06/29/19 07/23/19 07/23/19 History Gabapentin [Neurontin] 300 mg PO TID 06/29/19 07/23/19 Unknown History Levothyroxine Sodium [Tirosint] 150 mcg PO DAILY 06/29/19 07/23/19 07/23/19 History Multivit-Min/FA/Lycopen/Lutein 1 each PO DAILY 06/29/19 07/23/19 07/23/19 History [Centrum Silver Tablet] Pantoprazole [Protonix] 40 mg PO QDAY 06/29/19 07/23/19 07/23/19 History Tamsulosin [Flomax] 0.4 mg PO QDAY 06/29/19 07/23/19 07/22/19 History Tiotropium [place] [Spiriva] 2 puff IH DAILY 06/29/19 07/23/19 07/23/19 History traMADoL [Ultram] 50 mg PO Q6HR PRN 06/29/19 07/23/19 Unknown History Ascorbic Acid [Vitamin C] 500 mg PO BID 07/23/19 07/23/19 07/23/19 History Baclofen 5 mg PO TID 07/23/19 07/23/19 07/23/19 History Magnesium Oxide 400 400 mg PO BID 07/23/19 07/23/19 07/23/19 History Thiamine HCl [Vitamin B-1] 100 mg PO BID 07/23/19 07/23/19 07/23/19 History Active Medications: Generic Name Dose Route Start Last Admin Trade Name [place] PRN Reason Stop Dose Admin Acetaminophen 650 mg 07/23/19 20:50 07/27/19 06:32 Tylenol PO 650 mg Q4H PRN Administration Pain MILD(1-3)/Fever >100.5/HERNANDEZ Albuterol 2.5 mg 07/23/19 22:08 07/26/19 08:40 Proventil IH 2.5 mg Q4HRT PRN Administration Shortness Of Breath Amlodipine Besylate 5 mg 07/24/19 10:00 07/27/19 10:45 Amlodipine PO 5 mg QDAY KOLBY Administration Ascorbic Acid 500 mg 07/23/19 22:00 07/27/19 10:44 Vitamin C PO 500 mg BID KOLBY Administration Aspirin 81 mg 07/24/19 10:00 07/27/19 10:45 Halfprin Ec PO 81 mg QDAY KOLBY Administration Atorvastatin Calcium 80 mg 07/23/19 22:00 07/26/19 21:53 Lipitor PO 80 mg QHS KOLBY Administration Baclofen 5 mg 07/24/19 08:00 07/27/19 15:23 Lioresal PO 5 mg TID KOLBY Administration Budesonide 0.5 mg 07/24/19 08:00 07/27/19 08:51 Pulmicort IH 0.5 mg Q12HRT KOLBY Administration Calcitriol 0.25 mcg 07/24/19 10:00 07/27/19 10:46 Rocaltrol PO 0.25 mcg DAILY KOLBY Administration Ferrous Sulfate 325 mg 07/24/19 08:00 07/27/19 15:23 Feosol PO 325 mg TID KOLBY Administration Furosemide 20 mg 07/24/19 10:00 07/27/19 10:47 Lasix IV 20 mg QDAY KOLBY Administration Gabapentin 300 mg 07/24/19 08:00 07/27/19 15:23 Gabapentin PO 300 mg TID KOLBY Administration Heparin Sodium (Porcine) 5,000 unit 07/23/19 22:00 07/27/19 10:47 Heparin SUB-Q 5,000 unit Q12HR KOLBY Administration Hydrocortisone Sodium Succinate 100 mg 07/27/19 13:00 07/27/19 15:22 Solu-Cortef IV 100 mg Q12H KOLBY Administration Ceftriaxone Sodium 1 gm in 50 mls @ 100 mls/hr 07/23/19 22:00 07/26/19 21:52 Rocephin/Ns 1 Gm/50 Ml IV 07/27/19 22:29 100 mls/hr Q24H KOLBY Administration Protocol Levothyroxine Sodium 200 mcg 07/25/19 06:00 07/27/19 06:33 Synthroid IV 200 mcg DAILY@0600 KOLBY Administration Magnesium Oxide 400 mg 07/23/19 22:00 07/27/19 10:44 Mag-Ox PO 400 mg BID KOLBY Administration Multivitamins/Minerals 1 each 07/24/19 10:00 07/27/19 10:44 Theragran-M Tab PO 1 each QDAY KOLBY Administration Ondansetron HCl 4 mg 07/23/19 20:50 Zofran IV Q8H PRN Nausea And Vomiting Pantoprazole Sodium 40 mg 07/24/19 10:00 07/27/19 10:45 Protonix PO 40 mg QDAY KOLBY Administration Phenobarbital 32.4 mg 07/23/19 22:00 07/27/19 10:44 Phenobarbital PO 32.4 mg BID KOLBY Administration Sodium Chloride 10 ml 07/23/19 22:00 07/27/19 15:23 Sodium Chloride Flush Syringe 10 Ml IV 10 ml BID KOLBY Administration Sodium Chloride 10 ml 07/23/19 20:50 07/27/19 06:33 Sodium Chloride Flush Syringe 10 Ml IV 10 ml PRN PRN Administration LINE FLUSH Sodium Chloride 2 gm 07/27/19 22:00 Sodium Chloride PO BID KOLBY Tamsulosin HCl 0.4 mg 07/24/19 10:00 07/27/19 10:45 Flomax PO 0.4 mg QDAY KOLBY Administration Thiamine HCl 100 mg 07/23/19 22:00 07/27/19 10:44 Vitamin B-1 PO 100 mg BID KOLBY Administration Tramadol HCl 50 mg 07/26/19 14:14 07/27/19 11:00 Ultram PO 50 mg Q6H PRN Administration Pain, Moderate (4-6)
[2019-07-27] MEDS ORDERED: MAGNESIUM HYDROXIDE (MOM) ORAL LIQD UDC PO PRN (17:46)
[2019-07-27] MEDS ORDERED: MAGNESIUM HYDROXIDE (MOM) ORAL LIQD UDC PO ONE (17:46)
[2019-07-27] MEDS: cefTRIAXone/NS 1 GM/50 ML 1 GM/50 ML BAG IV SCH (21:20)
[2019-07-28] MEDS ORDERED: LEVOTHYROXINE 100 MCG TAB PO SCH (06:00)
[2019-07-28 07:05] LABS: BUN/Creatinine Ratio 19; Blood Urea Nitrogen 17 mg/dL (9-20); Hemolysis Index 4
[2019-07-28] MEDS: BUDESONIDE 0.5 MG/2 ML NEBU IH SCH (07:24)
[2019-07-28] MEDS: BACLOFEN 10 MG TAB PO SCH ×2 (08:35→15:10)
[2019-07-28] MEDS: FERROUS SULFATE 325 MG TAB PO SCH ×2 (08:35→15:10)
[2019-07-28] MEDS: GABAPENTIN 500 MG/10 ML ORAL LIQD PO SCH ×2 (08:40→15:10)
[2019-07-28] MEDS ORDERED: POTASSIUM CHLORIDE ER 20 MEQ TAB PO ONE (09:00)
[2019-07-28] MEDS ORDERED: predniSONE 20 MG TAB PO SCH (10:00)
[2019-07-28] MEDS: traMADol 50 MG TAB PO PRN (10:03)
[2019-07-28] MEDS: SODIUM CHLORIDE 1 GM TAB PO SCH (10:05)
[2019-07-28] MEDS: PANTOPRAZOLE 40 MG TAB PO SCH (10:05)
[2019-07-28] MEDS: CALCITRIOL 0.25 MCG CAP PO SCH (10:06)
[2019-07-28] MEDS: ASPIRIN EC 81 MG TAB PO SCH (10:06)
[2019-07-28] MEDS: MULTIVITAMINS,THER W-MINERALS TAB PO SCH (10:06)
[2019-07-28] MEDS: MAGNESIUM OXIDE 400 MG TAB PO SCH (10:06)
[2019-07-28] MEDS: TAMSULOSIN 0.4 MG CAP PO SCH (10:07)
[2019-07-28] MEDS: PHENobarbital 32.4 MG TAB PO SCH (10:07)
[2019-07-28] MEDS: THIAMINE 100 MG TAB PO SCH (10:07)
[2019-07-28] MEDS: ASCORBIC ACID 500 MG TAB PO SCH (10:07)
[2019-07-28] MEDS: amLODIPine 5 MG TAB PO SCH (10:07)
[2019-07-28] MEDS: FUROSEMIDE 40 MG/4 ML INJ IV SCH (10:08)
[2019-07-28] MEDS: HEPARIN 5,000 UNIT/1 ML VIAL SUB-Q SCH (10:18)
[2019-07-28] MEDS: ACETAMINOPHEN 325 MG TAB PO PRN (10:25)
--- NOTE | 2019-07-28 13:10 | Discharge Summary ---
Providers - Providers Date of Admission: 07/23/19 20:50 Date of discharge: 07/28/19 Attending physician: KELLEY PHILLIPS 07/23/19 20:46 Consult to Physician [CONS] Urgent Comment: Consulting Provider: KOBE AGUILAR Physician Instructions: Reason For Exam: hyponatremia 07/26/19 09:48 Speech Therapy Eval for [place] Valve [CONS] Routine Reason For Exam: pt needs passy jamie Primary care physician: ROUTE SALESPERSON Hospitalization Reason for admission: Severe hyponatremia, myxedema Condition: Stable Pertinent studies: Renal US ECHO CXR Hospital course: 63-year-old -Indian male who is a resident of [facility] with history of laryngeal cancer status post trach, seizure, COPD, hyponatremia, hypothyroidism, EtOH abuse, hypertension, CVA, GERD, arthritis, anemia, HLD and chronic pain who presents to [facility] ED noted to have severe hyponatremia. On evaluation the patient was noted to have severe hypothyroidism/myxedema requiring high-dose steroids and IV Synthroid Patient was evaluated by nephrology for hyponatremia, symptoms gradually improved High-dose IV steroids discontinued started tapering dose of oral prednisone Today patient is comfortable no new complaints vital signs stable Advised to see private [facility] for further evaluation and management Free T4 within normal limits however his TSH is very high, ID rec 5 days of antibiotics for UTI Discharge diagnoses: --Urinary tract infection: SIRS Empiric antibiotics. neg cultures Received 5 days of Rocephin --Constipation; stool softeners Supportive care --Myxedema; severe hypothyroidism Thyroid function tests slightly improved wean IV steroids, change to p.o. Synthroid Tapering dose of oral steroids, Synthroid 200 mg daily See [facility] upon discharge in 3-5 days --Hyponatremia: Resolved Patient has chronic hyponatremia Partly due to myxedema --Bilateral lower extremity edema, Continue diuretics, mild improvement --History of COPD; Nebulizers as needed --HTN: Moderate control Stable on current medications --Dyslipidemia : Continue statin --GERD:Continue Protonix --Hx Seizure; seizure precautions Continue Bacolfen and Phenobarbital --Hx Laryngeal Cancer S/P Trach, tracheostomy care --DVT prophylaxis Stable at discharge Disposition: [id number]/[place]-03 [facility] Time spent for discharge: 35 min Core Measure Documentation - Palliative Care Palliative Care/ Comfort Measures: Not Applicable - Core Measures Any of the following diagnoses?: none Exam - Constitutional Vitals: Temp Pulse Resp BP Pulse Ox 98.4 F 92 H 18 149/99 97 07/28/19 11:55 07/28/19 11:55 07/28/19 11:55 07/28/19 11:55 07/28/19 11:55 General appearance: Present: no acute distress, well-nourished, other (tracheostomy) - EENT Eyes: Present: PERRL, EOM intact - Neck Neck: Present: supple, normal ROM - Respiratory Respiratory effort: normal Respiratory: bilateral: diminished, rhonchi, negative: rales, wheezing - Cardiovascular Rhythm: regular Heart Sounds: Present: S1 & S2 - Extremities Extremities: no ischemia, pulses intact - Abdominal General gastrointestinal: Present: soft, non-tender, non-distended, normal bowel sounds - Integumentary Integumentary: Present: clear, warm - Musculoskeletal Musculoskeletal: strength equal bilaterally - Psychiatric Psychiatric: appropriate mood/affect, cooperative - Neurologic Neurologic: CNII-XII intact, moves all extremities Plan Activity: advance as tolerated, fall precautions Diet: regular Additional Instructions: Advised to see [facility] in 3-5 days[with in 1 wk] for management of Hypothyroidism. Aspiration precautions. Tracheostomy care Follow up with: PRIMARY CARE, [Primary Care Provider] - 7 Days KOBE AGUILAR MD [Staff Physician] - 7 Days JAYLIN ROBLEDO MD [Referring] - 7 Days Prescriptions: Prednisone [predniSONE 10 mg (6-Day Pack, 21 Tabs)] 10 mg PO .TAPER #1 tab.ds.pk Levothyroxine Sodium [Tirosint] 200 mcg PO DAILY #30 cap
[2019-07-28] MEDS ORDERED: hydrALAZINE 10 MG TAB PO ONE (15:30)
[2019-07-28 16:02] VITALS: BP 145/96
--- NOTE | 2019-07-28 16:59 | Progress Note ---
Assessment and Plan - Patient Problems (1) Hyponatremia Current Visit: Yes Status: Acute Plan to address problem: Hyponatremia; much improved. Elevated urine sodium Overall volume status appears euvolemic Given severe hypothyroidism high urine sodium hyponatremia may be a result continue sodium chloride tablets decrease to 1g bid. Continue treatment of underlying hypothyroidism (2) Hypothyroidism Current Visit: Yes Status: Acute Plan to address problem: Severe hypothyroidism markedly elevated TSH Continue Synthroid and endocrinology following (3) Hypertension Current Visit: No Status: Chronic Plan to address problem: Hypertension Continue medications (4) Leg edema Current Visit: Yes Status: Acute Plan to address problem: Leg edema much improved low threshold to stop Lasix (5) Acute kidney injury Current Visit: Yes Status: Acute Plan to address problem: Acute kidney injury mild:improving. Urinalysis reviewed avoid nephrotoxic medications Strict input and output Subjective Interval history: 64-year-old gentleman With severe hypothyroidism, hyponatremia and acute kidney injury Patient seen today as well has minimal lower extremity edema today is Mr. Sawant's Birthday!!! Expressed Birthday wishes. sodium level now normal on synthroid. Objective - Vital Signs Vital signs: Vital Signs - 12hr 07/28/19 07/28/19 07/28/19 05:46 07:26 07:27 Temperature 97.9 F Pulse Rate 81 Pulse Rate [ 89 Bilateral] Respiratory 9 L Rate Respiratory 16 Rate [Bilateral ] Blood Pressure 147/86 O2 Sat by Pulse 96 96 Oximetry O2 Sat by Pulse 97 Oximetry [ Assessment] 07/28/19 07/28/19 07/28/19 09:58 10:07 11:55 Temperature 98.4 F Pulse Rate 87 92 H Pulse Rate [ Bilateral] Respiratory 18 Rate Respiratory Rate [Bilateral ] Blood Pressure 146/78 146/78 149/99 O2 Sat by Pulse 97 Oximetry O2 Sat by Pulse Oximetry [ Assessment] 07/28/19 16:00 Temperature Pulse Rate Pulse Rate [ Bilateral] Respiratory Rate Respiratory Rate [Bilateral ] Blood Pressure 145/96 O2 Sat by Pulse Oximetry O2 Sat by Pulse Oximetry [ Assessment] - General Appearance General appearance: well-developed, well-nourished EENT: ATNC, PERRL Neck: no JVD Respiratory: Present: Clear to Ascultation Cardiology: regular, S1S2 Gastrointestinal: normal, normoactive bowel sounds Integumentary: no rash Neurologic: alert and oriented x3, CN 3-12 intact Psychiatric: mood/affect appropriate - Lab 07/24/19 05:17 07/28/19 06:29 Most recent lab results Calcium 8.0 mg/dL (8.4-10.2) L 07/28/19 06:29 Urine Sodium 110 mmol/L 07/23/19 20:25 - Imaging Chest x-ray: image reviewed Medications & Allergies - Medications Allergies/Adverse Reactions: Allergies No Known Allergies Allergy (Verified 06/29/13 09:59) Home Medications: Home Medications Medication Instructions Recorded Confirmed Last Taken Type PHENobarbitaL [PHENobarbital] 32.4 mg PO BID 06/08/13 07/23/19 07/23/19 History Ferrous Sulfate [Feosol 325 MG tab] 325 mg PO TID 04/18/15 07/23/19 07/23/19 History Acetaminophen [Mapap] 500 mg PO PRN PRN 06/29/19 07/23/19 Unknown History Aspirin EC [Halfprin EC] 81 mg PO QDAY 06/29/19 07/23/19 Unknown History Atorvastatin [Lipitor] 80 mg PO QHS 06/29/19 07/23/19 07/22/19 History Calcitriol [Rocaltrol] 0.25 mcg PO DAILY 06/29/19 07/23/19 07/23/19 History Gabapentin [Neurontin 250 mg/5 ml] 300 mg PO TID 06/29/19 07/23/19 Unknown History Multivit-Min/FA/Lycopen/Lutein 1 each PO DAILY 06/29/19 07/23/19 07/23/19 History [Centrum Silver Tablet] Pantoprazole [Protonix TAB] 40 mg PO QDAY 06/29/19 07/23/19 07/23/19 History Tamsulosin [Flomax] 0.4 mg PO QDAY 06/29/19 07/23/19 07/22/19 History Tiotropium Rawson [Spiriva] 2 puff IH DAILY 06/29/19 07/23/19 07/23/19 History traMADoL [Ultram 50 MG tab] 50 mg PO Q6HR PRN 06/29/19 07/23/19 Unknown History Ascorbic Acid [Vitamin C] 500 mg PO BID 07/23/19 07/23/19 07/23/19 History Baclofen 5 mg PO TID 07/23/19 07/23/1907/23/19 History Magnesium Oxide 400 400 mg PO BID 07/23/19 07/23/19 07/23/19 History Thiamine HCl [Vitamin B-1] 100 mg PO BID 07/23/19 07/23/19 07/23/19 History ALBUTEROL NEB's [Proventil 0.083% 2.5 mg IH Q4HRT PRN nebu 07/28/19 Unknown Rx NEBS] Levothyroxine Sodium [Tirosint] 200 mcg PO DAILY #30 cap 07/28/19 Unknown Rx Prednisone [predniSONE 10 mg 10 mg PO .TAPER #1 tab.ds.pk 07/28/19 Unknown Rx (6-Day Pack, 21 Tabs)] amLODIPine 5 mg PO QDAY tablet 07/28/19 Unknown Rx Active Medications: Generic Name Dose Route Start Last Admin Trade Name Freq PRN Reason Stop Dose Admin Acetaminophen 650 mg 07/23/19 20:50 07/28/19 10:25 Tylenol PO 650 mg Q4H PRN Administration Pain MILD(1-3)/Fever >100.5/HERNANDEZ Albuterol 2.5 mg 07/23/19 22:08 07/26/19 08:40 Proventil IH 2.5 mg Q4HRT PRN Administration Shortness Of Breath Amlodipine Besylate 5 mg 07/24/19 10:00 07/28/19 10:07 Amlodipine PO 5 mg QDAY KOLBY Administration Ascorbic Acid 500 mg 07/23/19 22:00 07/28/19 10:07 Vitamin C PO 500 mg BID KOLBY Administration Aspirin 81 mg 07/24/19 10:00 07/28/19 10:06 Halfprin Ec PO 81 mg QDAY KOLBY Administration Atorvastatin Calcium 80 mg 07/23/19 22:00 07/27/19 21:04 Lipitor PO 80 mg QHS KOLBY Administration Baclofen 5 mg 07/24/19 08:00 07/28/19 15:10 Lioresal PO 5 mg TID KOLBY Administration Budesonide 0.5 mg 07/24/19 08:00 07/28/19 07:24 Pulmicort IH 0.5 mg Q12HRT KOLBY Administration Calcitriol 0.25 mcg 07/24/19 10:00 07/28/19 10:06 Rocaltrol PO 0.25 mcg DAILY KOLBY Administration Ferrous Sulfate 325 mg 07/24/19 08:00 07/28/19 15:10 Feosol PO 325 mg TID KOLBY Administration Furosemide 20 mg 07/24/19 10:00 07/28/19 10:08 Lasix IV 20 mg QDAY KOLBY Administration Gabapentin 300 mg 07/24/19 08:00 07/28/19 15:10 Gabapentin PO 300 mg TID KOLBY Administration Heparin Sodium (Porcine) 5,000 unit 07/23/19 22:00 07/28/19 10:18 Heparin SUB-Q 5,000 unit Q12HR KOLBY Administration Levothyroxine Sodium 100 mcg 07/29/19 06:00 Synthroid PO DAILY@0600 KOLBY Levothyroxine Sodium 75 mcg 07/29/19 06:00 Synthroid PO DAILY@0600 [facility] Magnesium Hydroxide 30 ml 07/27/19 17:46 Milk Of Magnesia PO QDAY PRN Constipation Magnesium Oxide 400 mg 07/23/19 22:00 07/28/19 10:06 Mag-Ox PO 400 mg BID KOLBY Administration Multivitamins/Minerals 1 each 07/24/19 10:00 07/28/19 10:06 Theragran-M Tab PO 1 each QDAY KOLBY Administration Ondansetron HCl 4 mg 07/23/19 20:50 Zofran IV Q8H PRN Nausea And Vomiting Pantoprazole Sodium 40 mg 07/24/19 10:00 07/28/19 10:05 Protonix PO 40 mg QDAY KOLBY Administration Phenobarbital 32.4 mg 07/23/19 22:00 07/28/19 10:07 Phenobarbital PO 32.4 mg BID KOLBY Administration Prednisone 60 mg 07/28/19 10:00 07/28/19 10:06 Deltasone PO 60 mg QDAY KOLBY Administration Sodium Chloride 10 ml 07/23/19 22:00 07/28/19 10:20 Sodium Chloride Flush Syringe 10 Ml IV 10 ml BID KOLBY Administration Sodium Chloride 10 ml 07/23/19 20:50 07/27/19 06:33 Sodium Chloride Flush Syringe 10 Ml IV 10 ml PRN PRN Administration LINE FLUSH Sodium Chloride 2 gm 07/27/19 22:00 07/28/19 10:05 Sodium Chloride PO 2 gm BID KOLBY Administration Tamsulosin HCl 0.4 mg 07/24/19 10:00 07/28/19 10:07 Flomax PO 0.4 mg QDAY KOLBY Administration Thiamine HCl 100 mg 07/23/19 22:00 07/28/19 10:07 Vitamin B-1 PO 100 mg BID KOLBY Administration Tramadol HCl 50 mg 07/26/19 14:14 07/28/19 10:03 Ultram PO 50 mg Q6H PRN Administration Pain, Moderate (4-6)
[2019-07-29] MEDS ORDERED: LEVOTHYROXINE 75 MCG TAB PO SCH (06:00)
[2019-07-29] MEDS ORDERED: LEVOTHYROXINE 100 MCG TAB PO SCH (06:00)
[2019-07-29] MEDS ORDERED: LEVOTHYROXINE 150 MCG, LEVOTHYROXINE 25 MCG PO SCH (06:00)
== END 2019-07-28 17:35 | DRG 644 ==
LOC: ED 18:32 → 3A 20:50
PROVIDERS: ADMIT Internal Medicine; ATTEND Internal Medicine
DX: E03.9 Hypothyroidism, unspecified (principal); E87.1 Hypo-osmolality and hyponatremia; N17.9 Acute kidney failure, unspecified; N39.0 Urinary tract infection, site not specified; R65.10 Systemic inflammatory response syndrome (SIRS) of non-infectious origin without acute organ dysfunction; J44.9 Chronic obstructive pulmonary disease, unspecified; I10 Essential (primary) hypertension; K21.9 Gastro-esophageal reflux disease without esophagitis; R31.29 Other microscopic hematuria; N40.0 Benign prostatic hyperplasia without lower urinary tract symptoms; D64.89 Other specified anemias; G89.29 Other chronic pain; F10.10 Alcohol abuse, uncomplicated; K59.00 Constipation, unspecified; E78.5 Hyperlipidemia, unspecified; Z86.73 Personal history of transient ischemic attack (TIA), and cerebral infarction without residual deficits; Z85.21 Personal history of malignant neoplasm of larynx; Z79.899 Other long term (current) drug therapy; Z93.0 Tracheostomy status; Z85.46 Personal history of malignant neoplasm of prostate
CPT/HCPCS: 36415; 71045; 76770; 80048; 80076; 81001; 82436; 83880; 83930; 84300; 84436; 84439; 84443; 84479; 84480; 84481; 85025; 87086; 93306; 94640; 94760; 96374; G0378; A9270-GY; J0696; J1644; J1720; J1940; J7050; J7512